=== PATIENT | male | born 1985 | race Caucasian/White ===

== ENCOUNTER 2017-02-01 02:11 | Observation (INO) | payer OTHER ==
[~2017-02-01] VITALS: Ht 167.6 cm; Wt 135.3 kg
[2017-02-01] MEDS ORDERED: LABETALOL HCL IV 5 MG/ML 20ML IV STA ×2 (02:32→05:32)
--- NOTE | 2017-02-01 02:32 | EMERGENCY ROOM VISIT NOTE ---
History Report prepared by Zack: Percy Mendez Under the Supervision of: Dr. Rickey Garland M.D. First contact with patient: 02:22 Chief Complaint: OTHER COMPLAINT Stated Complaint: SUDDEN METALLIC TASTE,NUMBNESS IN MOUTH History of Present Illness The patient is a 31 year old male with a history of an aortic dissection who presents to the Emergency Room with complaints of an episode of numbness in his mouth that occurred prior to arrival this morning. 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 He states that he had an aortic dissection 2 years ago, and these symptoms this morning made him very anxious. The patient denies any nausea, vomiting, chest pain, neck pain, or headaches. He says that he currently feels normal, but his blood pressure is noted to be very high here. He denies any hits or recent trauma, or any new medications or unusual food intake. He is not on any blood thinners. 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 Source of History: patient Onset: Prior to arrival this morning Position: lip (and mouth) Quality: numbness (and tingling) Timing: other (episode) Associated Symptoms: No headache, No neck pain, No chest pain, No nausea, No vomiting Note: Associated symptoms: High blood pressure. Metallic taste in mouth for few seconds. Review of Systems See HPI for pertinent positives & negatives. A total of 10 systems reviewed and were otherwise negative. Past Medical & Surgical Medical Problems: (1) HTN (hypertension) (2) Hypertensive urgency (3) Numbness and tingling Family History FHx: heart disease Hypertension Social History Smoking Status: Never Smoker Alcohol Use: occasionally Drug Use: marijuana Occupation Status: employed Current/Historical Medications Scheduled Atorvastatin (Lipitor), 40 MG PO DAILY Enalapril (Vasotec), 10 MG PO BID Metoprolol Tartrate (Lopressor) (Lopressor), 100 MG PO BID Allergies Coded Allergies: Dust (Verified Allergy, Unknown, resp sx, 05/26/14) Molds and Smuts (Verified Allergy, Unknown, resp sx, 1/9/15) Physical Exam Vital Signs Date Time Temp Pulse Resp B/P (MAP) Pulse Ox O2 Delivery O2 Flow Rate FiO2 02/01/17 07:11 80 25 02/01/17 07:01 137/76 02/01/17 06:46 134/63 02/01/17 06:41 73 18 02/01/17 06:31 148/72 02/01/17 06:21 74 20 153/84 95 Room Air 02/01/17 06:16 153/84 02/01/17 06:11 72 22 96 02/01/17 06:01 152/80 02/01/17 05:46 165/84 02/01/17 05:25 76 20 178/85 95 Room Air 02/01/17 03:22 79 20 131/66 98 Room Air 02/01/17 03:06 75 18 157/97 95 Room Air 02/01/17 02:14 36.6 83 18 194/131 95 Room Air Physical Exam GENERAL: Patient is anxious appearing and in no acute distress. Overweight. HEENT: No acute trauma, normocephalic atraumatic, mucous membranes moist, no nasal congestion, no scleral icterus. NECK: No stridor, no adenopathy, no meningismus, trachea is midline. LUNGS: No dyspnea. Clear to auscultation and equal bilaterally. No wheeze, no rhonchi. HEART: Regular rate and rhythm. No murmurs, rubs, gallops appreciated. ABDOMEN: Soft, nontender, bowel sounds positive, no masses appreciated, no peritonitis. BACK: No midline tenderness, no CVA tenderness EXTREMITIES: Normal motion all extremities, no cyanosis, no edema. NEUROLOGIC: Alert and oriented, no acute motor or sensory deficits, no focal weakness, cranial nerves grossly intact. SKIN: No rash, no jaundice, no diaphoresis. Medical Decision & Procedures ER Provider Diagnostic Interpretation: Radiology results and stated below per my review and radiologist interpretation: Chest x-ray 1 view: no infiltrate, no effusion, large heart though smaller than previous chest x-ray. Sternal wires intact. CT HEAD: No ICH, mass effect, or edema. Shaffer-white matter differentiation preserved. No skull fracture. Visualized paranasal sinuses and mastoid air cells are clear. Radiologist: Cheyanne Stevens M.D. CTA NECK: Evaluation limited by motion artifact. Prior ascending aortic aneurysm repair. No evidence of recurrent dissection. Bilateral common carotid arteries are patent and normal in caliber. Bilateral internal carotid and vertebral arteries are patent and normal in caliber. No evidence of aneurysm or dissection. No acute osseous findings. No soft tissue abnormalities of the neck. CTA CHEST: Evaluation limited by motion artifact. Prior ascending aortic aneurysm repair. No evidence of recurrent dissection. No evidence of intramural hematoma on precontrast images. Enlarged main pulmonary artery compatible with pulmonary arterial hypertension. Mild cardiomegaly. No pericardial effusion. Clear lungs. No effusion or pneumothorax. Unremarkable visualized upper abdomen. No acute osseous findings. Radiologist: Cheyanne Cisneros M.D. Laboratory Results 02/01/17 02:45 Red Blood Count 5.18, Mean Corpuscular Volume 91.3, Mean Corpuscular Hemoglobin 32.2, Mean Corpuscular Hemoglobin Concent 35.3, Mean Platelet Volume 9.9, Neutrophils (%) (Auto) 58.2, Lymphocytes (%) (Auto) 32.6, Monocytes (%) (Auto) 7.2, Eosinophils (%) (Auto) 1.4, Basophils (%) (Auto) 0.2, Neutrophils # (Auto) 4.98, Lymphocytes # (Auto) 2.79, Monocytes # (Auto) 0.62, Eosinophils # (Auto) 0.12, Basophils # (Auto) 0.02 02/01/17 02:45 Test 02/01/17 02:45 02/01/17 07:18 02/01/17 07:34 White Blood Count 8.56 K/uL (4.8-10.8) Red Blood Count 5.18 M/uL (4.7-6.1) Hemoglobin 16.7 g/dL (14.0-18.0) Hematocrit 47.3 % (42-52) Mean Corpuscular Volume 91.3 fL (80-100) Mean Corpuscular Hemoglobin 32.2 pg (25-34) Mean Corpuscular Hemoglobin Concent 35.3 g/dl (32-36) Platelet Count 264 K/uL (130-400) Mean Platelet Volume 9.9 fL (7.4-10.4) Neutrophils (%) (Auto) 58.2 % Lymphocytes (%) (Auto) 32.6 % Monocytes (%) (Auto) 7.2 % Eosinophils (%) (Auto) 1.4 % Basophils (%) (Auto) 0.2 % Neutrophils # (Auto) 4.98 K/uL (1.4-6.5) Lymphocytes # (Auto) 2.79 K/uL (1.2-3.4) Monocytes # (Auto) 0.62 K/uL (0.11-0.59) Eosinophils # (Auto) 0.12 K/uL (0-0.5) Basophils # (Auto) 0.02 K/uL (0-0.2) RDW Standard Deviation 41.8 fL (36.4-46.3) RDW Coefficient of Variation 12.6 % (11.5-14.5) Immature Granulocyte % (Auto) 0.4 % Immature Granulocyte # (Auto) 0.03 K/uL (0.00-0.02) Anion Gap 4.0 mmol/L (3-11) Est Creatinine Clear Calc Drug Dose 125.1 ml/min Estimated GFR () 102.4 Estimated GFR (Non- 88.4 BUN/Creatinine Ratio 13.4 (10-20) Calcium Level 9.3 mg/dl (8.5-10.1) Magnesium Level 2.0 mg/dl (1.8-2.4) Total Creatine Kinase 144 U/L (39-308) Creatine Kinase MB 2.7 ng/ml (0.5-3.6) Creatine Kinase MB Ratio 1.9 (0-3.0) Troponin I 0.058 ng/ml (0-0.045) Laboratory results as reviewed by me. Medications Administered Medications (Trade) Dose Ordered Sig/Ashwin Route Start Time Stop Time Status Last Admin Dose Admin Labetalol HCl (Normodyne IV) 20 mg NOW STAT IV 02/01/17 02:32 02/01/17 02:33 DC 02/01/17 03:08 10 MG Labetalol HCl (Normodyne IV) 10 mg NOW STAT IV 02/01/17 05:32 02/01/17 05:33 DC 02/01/17 05:32 10 MG ECG Indication: other (numbness) Rate (beats per minute): 73 Rhythm: normal sinus Findings: LBBB, no acute ischemic change, no ectopy Comparison ECG Date: when compared to May 26 2014, intraventricular delay has increased ED Course 0225: The patient was evaluated in room C2B. A complete history and physical exam was performed. 0232: Ordered Normodyne IV 20 mg IV. 0355: I reevaluated the patient and he is resting. The patient verbally expressed understanding and agreement of the treatment plan. The patient will be evaluated for further treatment. 0358: I discussed the patient with Dr. Rosa BERUMEN fortune teller - he will evaluate the patient for further treatment. 0532: Ordered Normodyne IV 10 mg IV. 0540: I reevaluated the patient and he is feeling well. Medical Decision Differential: Benign Hypertension, Hypertensive Urgency/Emergency, Cardiovascular Pathology, Endocrine, Metabolic/Electrolyte, Renal Disease, End organ Damage, amongst other pathologies entertained. 31 yr old male arrives for evaluation of metallic taste in his mouth and after this jodi-oral numbness/tingling. On arrival with no neuro deficits though he is significantly hypertensive. He has history of aortic dissection last year requiring open closure at [facility] [place]. Admits no follow up in last 11 months. Labetalol with improvement in symptoms. Required second dose IV labetalol a bit later. EKG with LBBB which is significantly increased from EKG previously, though similar to those from post operative phase. No chest pain nor SHOB. Discussing with Hospitalist will go ahead and get CTAs to rule out dissection as cause in setting of HTN. Fortunately no acute findings. Patient stable and will come in for evaluation of mild Trop elevation which given HTN I suspect this is hypertensive emergency and not acute dissection nor ACS. Could just be baseline level given ventricular hypertrophy though will need further work-up prior to making this decision. Medication Reconcilliation Current Medication List: was personally reviewed by me Blood Pressure Screening Patient's blood pressure: Elevated blood pressure Monitored by hospitalist. Consults Time Called: [phone] Consulting Physician: Dr. Rosa BERUMEN fortune teller Returned Call: [phone] I discussed the patient with Dr. Rosa BERUMEN fortune teller - he will evaluate the patient for further treatment. Impression Primary Impression: Hypertensive emergency Additional Impression: Elevated troponin Scribe Attestation The scribe's documentation has been prepared under my direction and personally reviewed by me in its entirety. I confirm that the note above accurately reflects all work, treatment, procedures, and medical decision making performed by me. Departure Information Dispostion Being Evaluated By Hospitalist Referrals No Doctor, Assigned (PCP) Patient Instructions [facility] Problem Qualifiers
[2017-02-01] MEDS ORDERED: METO100T14 PO (02:37)
[2017-02-01] MEDS ORDERED: ENAL10TA88 PO (02:38)
[2017-02-01] MEDS ORDERED: ATOR-24 PO (02:38)
[2017-02-01 02:52] LABS: BASO % 0.2 %; BASO ABS # 0.02 K/uL (0-0.2); COMPLETE YES; EOS % 1.4 %; HEMATOCRIT 47.3 % (42-52); IG% 0.4 %; LYMPH % 32.6 %; LYMPH ABS # 2.79 K/uL (1.2-3.4); MEAN CELL VOLUME 91.3 fL (80-100); MEAN CORPUSCULAR HEMOGLOBIN 32.2 pg (25-34); MEAN CORPUSCULAR HGB CONC 35.3 g/dl (32-36); MEAN PLATELET VOLUME 9.9 fL (7.4-10.4); MONO % 7.2 %; NEUT % 58.2 %; PLATELET COUNT 264 K/uL (130-400); RED BLOOD COUNT 5.18 M/uL (4.7-6.1); WHITE BLOOD COUNT 8.56 K/uL (4.8-10.8)
[2017-02-01 03:23] LABS: BUN/CREATININE RATIO 13.4 (10-20); CALCIUM 9.3 mg/dl (8.5-10.1); CREATININE 1.1 mg/dl (0.60-1.40)
[2017-02-01 03:41] LABS: CKMB/CK RATIO 1.9 (0-3.0); POTASSIUM 4.5 mmol/L (3.5-5.1)
--- NOTE | 2017-02-01 05:14 | History and Physical ---
History & Physical Date & Time of Service: Feb 01, 2017 at 04:58 Chief Complaint: Sudden Metallic Taste,Numbness In Mouth Primary Care Physician: No Doctor, Assigned History of Present Illness Source: patient 31 y/o M Hx HTN, HPL, LBBB, critical aortic dissection 2014. 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 He developed a strong metallic taste in his mouth, followed by perioral numbness and a sense of panic. His symptoms were short-lived, however, considering his history, he presented to the ER for evaluation. The pt's systolic BP on arrival was > 200. He was asymptomatic at the time of evaluation for admission. An initial trop proved to be marginally elevated and an EKG is nondiagnostic due to LBBB. Following 20 mg of IV Labetalol administered in the ER, his pressure was ~ 140/ 80. Past Medical/Surgical History 1) HTN 2) Obesity 3) HPL 4) Aortic dissection 2014 - CT from 2014 revealed a type A dissection involving the aortic root, estimated at 5.2cm extending to involve the origin of the R carotid. Hemopericardium indicating rupture was described. Pt was transferred to [facility] in [place] emergently for open repair. 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 Smoking Status: Never Smoker Drug Use: marijuana Occupational Status: employed Multi-Drug Resistant Organisms History of MDRO: No Allergies Coded Allergies: Dust (Verified Allergy, Unknown, resp sx, 05/26/14) Molds and Smuts (Verified Allergy, Unknown, resp sx, 05/26/14) Home Medications Scheduled Atorvastatin (Lipitor), 40 MG PO DAILY Enalapril (Vasotec), 10 MG PO BID Metoprolol Tartrate (Lopressor) (Lopressor), 100 MG PO BID Review of Systems Constitutional: No fever, No chills, No sweats Eyes: No worsening of vision ENT: + problem reported (perioral numbness - metallic taste in mouth), No hearing loss, No nasal symptoms Respiratory: No cough, No sputum, No wheezing Cardiovascular: No chest pain, No orthopnea, No PND Abdomen: No pain, No nausea, No vomiting Musculoskeletal: No joint pain Genitourinary - Male: No hematuria, No dysuria Neurologic: + numbness/tingling (perioral numbness - metallic taste in mouth), No memory loss, No paralysis, No weakness Psychiatric: No depression symptoms Endocrine: No fatigue Hematologic / Lymphatic: No abnormal bleeding/bruising Integumentary: No rash Allergic / Immunologic: No environmental allergies Physical Exam Vital Signs Date Time Temp Pulse Resp B/P (MAP) Pulse Ox O2 Delivery O2 Flow Rate FiO2 02/01/17 03:22 79 20 131/66 98 Room Air 02/01/17 03:06 75 18 157/97 95 Room Air 02/01/17 02:14 36.6 83 18 194/131 95 Room Air General Appearance: WD/WN, + mild distress Head: normocephalic Eyes: normal inspection ENT: normal ENT inspection, pharynx normal Neck: supple, + pertinent finding (exam is limited by habitus) Respiratory/Chest: chest non-tender, lungs clear, normal breath sounds Cardiovascular: regular rate, rhythm, no edema Abdomen/GI: normal bowel sounds, non tender Back: normal inspection, no CVA tenderness Extremities/Musculoskelatal: normal inspection, no calf tenderness, normal capillary refill Neurologic/Psych: station superintendent II-XII nml as tested, no motor/sensory deficits, alert, oriented x 3 Skin: normal color Diagnostics Laboratory Results Results Past 24 Hours Test 02/01/17 02:45 Range/Units White Blood Count 8.56 4.8-10.8 K/uL Red Blood Count 5.18 4.7-6.1 M/uL Hemoglobin 16.7 14.0-18.0 g/dL Hematocrit 47.3 42-52 % Mean Corpuscular Volume 91.3 80-100 fL Mean Corpuscular Hemoglobin 32.2 25-34 pg Mean Corpuscular Hemoglobin Concent 35.3 32-36 g/dl Platelet Count 264 130-400 K/uL Mean Platelet Volume 9.9 7.4-10.4 fL Neutrophils (%) (Auto) 58.2 % Lymphocytes (%) (Auto) 32.6 % Monocytes (%) (Auto) 7.2 % Eosinophils (%) (Auto) 1.4 % Basophils (%) (Auto) 0.2 % Neutrophils # (Auto) 4.98 1.4-6.5 K/uL Lymphocytes # (Auto) 2.79 1.2-3.4 K/uL Monocytes # (Auto) 0.62 0.11-0.59 K/uL Eosinophils # (Auto) 0.12 0-0.5 K/uL Basophils # (Auto) 0.02 0-0.2 K/uL RDW Standard Deviation 41.8 36.4-46.3 fL RDW Coefficient of Variation 12.6 11.5-14.5 % Immature Granulocyte % (Auto) 0.4 % Immature Granulocyte # (Auto) 0.03 0.00-0.02 K/uL Sodium Level 139 136-145 mmol/L Potassium Level 4.5 3.5-5.1 mmol/L Chloride Level 107 98-107 mmol/L Carbon Dioxide Level 28 21-32 mmol/L Anion Gap 4.0 3-11 mmol/L Blood Urea Nitrogen 15 7-18 mg/dl Creatinine 1.10 0.60-1.40 mg/dl Est Creatinine Clear Calc Drug Dose 125.1 ml/min Estimated GFR () 102.4 Estimated GFR (Non- 88.4 BUN/Creatinine Ratio 13.4 10-20 Random Glucose 125 70-99 mg/dl Calcium Level 9.3 8.5-10.1 mg/dl Magnesium Level 2.0 1.8-2.4 mg/dl Total Creatine Kinase 144 39-308 U/L Creatine Kinase MB 2.7 0.5-3.6 ng/ml Creatine Kinase MB Ratio 1.9 0-3.0 Troponin I 0.054 0-0.045 ng/ml EKG LBBB - nondiagnostic Impression Assessment and Plan 31 y/o M Hx HTN, HPL, LBBB, critical aortic dissection 2014. 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 He developed a strong metallic taste in his mouth, followed by perioral numbness and a sense of panic. His symptoms were short-lived, however, considering his history, he presented to the ER for evaluation. The pt's systolic BP on arrival was > 200. He was asymptomatic at the time of evaluation for admission. An initial trop proved to be marginally elevated and an EKG is nondiagnostic due to LBBB. Following 20 mg of IV Labetalol administered in the ER, his pressure was ~ 140/ 80. 1) Elevated trop - unclear if this is chronic - EKG is nondiagnostic and does not meet Sgarbossa criteria - we will trend and consult cardiology - cont B viviana and Statin - ASA provided 2) HTN urgency - responded to single dose of IV Labetalol - will monitor on telemetry and provide additional Bblocker as needed 3) HPL - cont Statin 4) Obesity - considering the pt's history, dietary indiscretion and marked obesity, he should likely be evaluated for a gastric sleeve if not a bypass. We would presume based on his habitus that he has SHARI which would impede proper BP control and put him at further risk of recurrent dissection. 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 6) Regarding his perioral numbness, the pt was sent for a CTA as review of a CT from his dissection in 2014 revealed encroachment on the origin of the R carotid artery. There are no acute findings on CTA and I do not believe his symptoms merit a complete TIA workup as HTN urgency may be accompanied by paresthesias. Full code - Heparin prophylaxis total time for this admit including review of labs, meds, imaging, EKG - discussion with pt and ER attending Level of Care Telemetry Resuscitation Status FULL RESUSCITATION VTE Prophylaxis Given or contraindicated: SCD's
[2017-02-01] MEDS ORDERED: OPTIRAY 320 IV PRN (05:15)
[2017-02-01] MEDS ORDERED: ZOLPIDEM TARTRATE 5 MG TAB PO PRN (06:45)
[2017-02-01] MEDS ORDERED: ALUMINUM/MAGNESIUM/SIMETH (MAALOX MAX) 30 ML UDC PO PRN (06:45)
[2017-02-01] MEDS ORDERED: SODIUM CHLORIDE 0.9% 1000ML 1,000 ML IV ONE (06:45)
[2017-02-01] MEDS ORDERED: MoRPHine SULFATE 2 MG/ML CARP IV PRN (06:45)
[2017-02-01] MEDS ORDERED: POLYETHYLENE (MIRALAX) 17 GM PACK PO PRN (06:45)
[2017-02-01] MEDS ORDERED: ONDANSETRON INJ 2 MG/ML 2 ML VIAL IV PRN (06:45)
[2017-02-01] MEDS ORDERED: MAGNESIUM HYDROXIDE SUSP 30 ML UDC PO PRN (06:45)
[2017-02-01] MEDS ORDERED: ACETAMINOPHEN 325 MG TAB PO PRN (06:45)
[2017-02-01] MEDS ORDERED: LABETALOL HCL IV 5 MG/ML 20ML IV PRN (06:45)
--- NOTE | 2017-02-01 06:56 | DIAGNOSTIC IMAGING REPORT ---
CHEST ONE VIEW PORTABLE CLINICAL HISTORY: 31 years-old Male presenting with Chest Pain. TECHNIQUE: Portable upright AP view of the chest was obtained. COMPARISON: 05/26/2014. FINDINGS: Median sternotomy wires now in place. Cardiac silhouette enlarged, stable to slightly decreased in size from prior. Lungs and pleural spaces clear. Osseous structures normal. Upper abdomen normal. IMPRESSION: 1. Cardiomegaly with sternotomy changes. Otherwise no acute cardiopulmonary disease. Electronically signed by: Anuj Mccann M.D. 02/01/2017 6:55 AM Dictated Date/Time: 02/01/2017 6:54 AM
[2017-02-01] MEDS ORDERED: IV FLUIDS COMPLETED PRN (07:00)
--- NOTE | 2017-02-01 07:00 | DIAGNOSTIC IMAGING REPORT ---
HEAD WITHOUT CONTRAST (CT) CLINICAL HISTORY: 31 years-old Male presenting with neuro symptoms, metallic taste in mouth, numbness in mouth. TECHNIQUE: Multidetector CT imaging of the head was performed without the use of intravenous contrast. IV contrast: None. A dose lowering technique was used consistent with the principles of ALARA (as low as reasonably achievable). COMPARISON: None. CT DOSE (mGy.cm): The estimated cumulative dose is 614.27 mGy.cm. FINDINGS: Professor Of Art topogram: Unremarkable. Ventricles and sulci normal in size. Brain parenchyma normal in appearance with preserved bach-white differentiation. No mass effect or midline shift. No hemorrhage or acute territorial infarct. No extra-axial fluid collection. Paranasal sinuses and mastoid air cells clear. Calvarium intact. IMPRESSION: 1. No acute intracranial pathology. Electronically signed by: Anuj Mccann M.D. 02/01/2017 6:59 AM Dictated Date/Time: 02/01/2017 6:57 AM
--- NOTE | 2017-02-01 07:44 | DIAGNOSTIC IMAGING REPORT ---
CHEST COMBO ANGIOGRAPHY CLINICAL HISTORY: 31 years-old Male presenting with TIA symptoms, hypertensive urgency, history of aortic aneurysm repair. TECHNIQUE: Multidetector CT angiography of the chest was performed before and after the administration of intravenous contrast. 3-D volumetric and/or maximum intensity projection (MIP) images were subsequently reconstructed for review. IV contrast: 120 mL of Optiray 320. A dose lowering technique was used consistent with the principles of ALARA (as low as reasonably achievable). COMPARISON: 05/26/2014. CT DOSE (mGy.cm): The estimated cumulative dose is 3411.13 mGy.cm. FINDINGS: Senior Qa Engineer topogram: Unremarkable. Vasculature: Initial noncontrast imaging of the chest demonstrates no evidence of an intramural hematoma. Hyperdensity along the aortic root and ascending aorta from prior aneurysm repair. Postcontrast imaging demonstrates mild ectasia of the aortic root measuring 3.1 cm in maximal transverse dimension. Mild irregularity likely postsurgical and secondary to nongated technique. No convincing evidence of dissection or acute aortic injury. The heart is significantly enlarged with hypertrophy of left ventricular myocardium. Mild enlargement of the main pulmonary artery measuring 3.2 cm in transverse dimension. Remaining chest: On soft tissue windows, normal thyroid and thoracic inlet. No axillary, supraclavicular, mediastinal, or hilar adenopathy. No pericardial or pleural effusion. Upper abdomen normal. On lung windows, evaluation degraded secondary to respiratory motion artifact. Allowing for this, no focal infiltrate. Airways patent. On bone windows, median sternotomy changes. No acute osseous injury. No destructive osseous lesion. IMPRESSION: 1. Postsurgical changes of ascending aortic aneurysm repair. No convincing evidence of acute aortic injury. 2. Cardiomegaly. 3. Mild pulmonary artery enlargement could suggest pulmonary artery hypertension. This may be secondary to elevated left heart pressures. 4. No acute intrathoracic pathology. Electronically signed by: Anuj Mccann M.D. 02/01/2017 7:42 AM Dictated Date/Time: 02/01/2017 7:35 AM
--- NOTE | 2017-02-01 07:53 | DIAGNOSTIC IMAGING REPORT ---
NECK ANGIO WITH CONTRAST CLINICAL HISTORY: 31 years-old Male presenting with concern for dissection, history of aortic dissection with root involvement, TIA symptoms. TECHNIQUE: Multidetector CT angiography of the neck was performed after the administration of intravenous contrast. 3-D volumetric and/or maximum intensity projection (MIP) images were subsequently reconstructed for review. IV contrast: None. A dose lowering technique was used consistent with the principles of ALARA (as low as reasonably achievable). Stenosis measurements were based on NASCET-like criteria. COMPARISON: Correlation made to CT chest from 2015. CT DOSE (mGy.cm): The estimated cumulative dose is 3411.13 inclusive of the CTA chest. FINDINGS: Water Ski Assembler topogram: Unremarkable. Three-vessel aortic arch with postsurgical changes of the ascending aorta. Pulsation artifact at the aortic root limits evaluation. Bilateral common and internal carotid arteries patent throughout their courses. Origins and courses of the bilateral vertebral arteries also patent, which are codominant. No evidence of dissection, aneurysm, or stenosis of the cervical vessels. Limited intracranial evaluation within normal limits. Regional soft tissues of the neck within normal limits. Cervical spine normal. IMPRESSION: No evidence of dissection, aneurysm, or stenosis of the cervical vessels. Electronically signed by: Anuj Mccann M.D. 02/01/2017 7:52 AM Dictated Date/Time: 02/01/2017 7:42 AM
[2017-02-01 08:05] VITALS: BP 129/86; PULSE 89; TEMP 36.5; O2SAT 98; Ht 167.6 cm; Wt 135.3 kg
[2017-02-01 08:05] LABS: PROTHROMBIN TIME (PATIENT) 10.8 SECONDS (9.0-12.0)
[2017-02-01] MEDS ORDERED: ASPIRIN 81 MG ECTAB PO SCH (09:00)
--- NOTE | 2017-02-01 10:59 | CARDIOLOGY CONSULTATION ---
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 In May 2014, he presented with a type 1 ascending aortic dissection which required surgical repair. He also had hypertrophic cardiomyopathy and is status post myomectomy. The aortic root was reconstructed with reimplantation of the coronaries. He also has a history of obesity, hypertension and hyperlipidemia. He has not been always compliant with followup and recommendations. The patient was last seen in our practice in March 2016. At that time, it was requested that he have a follow up CT and echocardiogram which were not completed. 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 Late last evening, he finished his copy and sent it along. Almost immediately after sending his work, he had the sudden onset of metallic taste in his mouth with numbness of his lips. He states this only lasted for approximately 5 seconds. It then resolved. Due to his previous history however, he became concerned and thought he might be having a stroke. He then presented to the Emergency Department. The patient had no chest pain or shortness of breath. He denies heart palpitations or dizziness. In the Emergency Department, the patient was noted to be markedly hypertensive and was treated appropriately. He does have a chronic left bundle branch block on his EKG. His cardiac markers at the time of admission and follow up have been borderline elevated at 0.5 with no significant increase after admission, suggesting an elevation not due to acute coronary syndrome, most likely due to his hypertension. He has no complaints this morning. He has had a CT angio of the chest which shows no new dissections or problems with the aorta. He also had a CT angio of the brain that shows no significant findings that would suggest a stroke. ALLERGIES: DUST AND MOLDS. PAST MEDICAL HISTORY: As outlined above. Status post type 1 aortic dissection repair which was completed at [facility] in 2014. He has a history of a chronic left bundle branch block and a previous myomectomy and hypertrophic cardiomyopathy. He was treated for dyslipidemia, hypertension and has a history of obesity. FAMILY MEDICAL HISTORY: Significant for hypertension. SOCIAL HISTORY: He is a never smoker. He does have occasional marijuana. 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 REVIEW OF SYSTEMS: A 10-point review of systems is negative except for the history of chief complaint. PHYSICAL EXAMINATION: GENERAL: He is alert and oriented in no acute distress. VITAL SIGNS: Blood pressure is 130/60. Pulse is regular at 70. He is afebrile. HEENT: He is normocephalic. Pupils are equal and reactive to light. Extraocular muscles are intact bilaterally. NECK: The neck veins are flat. Carotids have good upstrokes bilaterally without bruits. Thyroid is nonpalpable. RESPIRATORY: Breath sounds equal bilaterally and clear to auscultation. CARDIOVASCULAR: Heart has a regular rhythm. Normal S1, S2. No S3, S4. No cardiac rubs or murmurs. GASTROINTESTINAL: Abdomen is soft, nontender without organomegaly. EXTREMITIES: Free of edema, digit clubbing, or cyanosis. NEUROLOGIC: Grossly intact. SKIN: Warm to touch. LYMPH NODES: Negative to palpation. LABORATORY DATA: As per the history of chief complaint. IMPRESSION: 1. Perioral paresthesias and a metallic taste. 2. Type 2 aortic dissection with repair. 3. Hypertrophic cardiomyopathy with previous myomectomy. 4. Borderline elevation in troponin due to demand ischemia from hypertension and not related to acute coronary syndrome. 5. Obesity. RECOMMENDATIONS: The patient was to have an echocardiogram after his last outpatient visit at our clinic. That was never completed. I will order one today as a followup of his hypertrophic cardiomyopathy. I would also order an additional troponin. Although, I do not believe that is due to acute coronary syndrome. If the additional troponins come back without elevation, then I think we are fairly certain it is related to demand ischemia.
[2017-02-01 11:15] VITALS: BP 112/77; PULSE 79; TEMP 37; O2SAT 92
[2017-02-01] MEDS ORDERED: HEPARIN SOD 5000 UNIT/0.5 ML CARP SQ SCH (14:00)
--- NOTE | 2017-02-01 14:16 | ECHOCARDIOGRAM REPORT ---
*NOTICE TO RECEIVING DEMOCRAT AGENCY This information is strictly Confidential and protected under [place] law. [place] law prohibits you from making any further disclosure of this information unless further disclosure is expressly permitted by the written consent of the person to whom it pertains or is authorized by law. A general authorization for the release of medical or other information is not sufficient for this purpose. Hospital accepts no responsibility if the information is made available to any other person, INCLUDING THE PATIENT. Interpretation Summary * Name: KALYAN BARNES Study Date: 02/01/2017 11:34 AM BP: 129/86 mmHg * Patient Location: C.2T\S\S240\S\1 HR: 89 * : 1985 (M/d/yyyy) Gender: Male Height: 66 in * Age: 31 yrs Ethnicity: CA Weight: 298 lb * Ordering Physician: Jayesh Petty * Referring Physician: Self, Referred * Performed By: Silvina Artis RCS * * Reason For Study: Dissection Aorta * BSA: 2.4 m2 * The study was technically difficult. * -- Conclusions -- * Very limited acoustic windows. * The study was technically difficult. * The left ventricle is grossly normal size. * The left ventricular ejection fraction is grossly normal. Procedure Details * A complete two-dimensional transthoracic echocardiogram was performed (2D, M-mode, Doppler and color flow Doppler). * The study was technically difficult. * The study was technically limited. * Patient supine for imagining * A contrast injection of Definity was performed to improve assessment of LV function. * Contrast was injected into an intravenous site in the right arm. * One vial of Definity ultrasound contrast was diluted in normal saline to a total volume of 10 ml. A total of '2' ml of solution was administered during imaging. * Lot # [id number] of Definity utilized for procedure. * Expiration date . * The attending nurse who injected the contrast agent was Suzy Alfonso RN. Left Ventricle * The left ventricle is grossly normal size. * The left ventricular ejection fraction is grossly normal. Right Ventricle * The right ventricle is not well visualized. Atria * The left atrium is not well visualized. * Right atrium not well visualized. Mitral Valve * The mitral valve is not well visualized. Tricuspid Valve * The tricuspid valve is not well visualized. Aortic Valve * The aortic valve is not well visualized. Pulmonic Valve * The pulmonic valve is not well visualized. MMode 2D Measurements and Calculations IVSd 1.7 cm IVSs 1.8 cm LVIDd 5.4 cm LVIDs 4.4 cm LVPWd 1.8 cm LVPWs 1.8 cm IVS/LVPW 0.96 FS 18.6 % EDV(Teich) 140.3 ml ESV(Teich) 86.9 ml EF(Teich) 38.1 % EDV(cubed) 156.0 ml ESV(cubed) 84.2 ml EF(cubed) 46.0 % % IVS thick 6.6 % % LVPW thick 2.9 % LV mass(C)d 456.2 grams LV mass(C)dI 192.5 grams/m\S\2 LV mass(C)s 366.0 grams LV mass(C)sI 154.5 grams/m\S\2 SV(Teich) 53.4 ml SI(Teich) 22.6 ml/m\S\2 SV(cubed) 71.8 ml SI(cubed) 30.3 ml/m\S\2 Ao root diam 3.8 cm Ao root area 11.5 cm\S\2 LA dimension 4.7 cm asc Aorta Diam 3.3 cm LA/Ao 1.2 EDV(MOD-sp4) 219.9 ml ESV(MOD-sp4) 96.1 ml EF(MOD-sp4) 56.3 % EDV(MOD-sp2) 230.8 ml ESV(MOD-sp2) 138.5 ml EF(MOD-sp2) 40.0 % SV(MOD-sp4) 123.9 ml SI(MOD-sp4) 52.3 ml/m\S\2 SV(MOD-sp2) 92.3 ml SI(MOD-sp2) 39.0 ml/m\S\2 Doppler Measurements and Calculations MV E max dre 87.9 cm/sec MV A max dre 103.1 cm/sec MV E/A 0.85 MV P1/2t max dre 95.8 cm/sec MV P1/2t 81.7 msec MVA(P1/2t) 2.7 cm\S\2 MV dec slope 343.5 cm/sec\S\2 MV dec time 0.25 sec Ao V2 max 267.2 cm/sec Ao max PG 28.6 mmHg Ao max PG (full) 19.4 mmHg LV V1 max PG 9.1 mmHg LV V1 max 151.2 cm/sec PA V2 max 137.2 cm/sec PA max PG 7.5 mmHg
--- NOTE | 2017-02-01 15:16 | Discharge Instructions ---
Discharge Instructions Date of Service Feb 01, 2017. Admission Reason for Admission: Hypertensive Urgency,Numbness And Tingling Discharge Discharge Diagnosis / Problem: Chest pain Discharge Goals Goal(s): Decrease discomfort, Improve disease control, Diagnostic testing Activity Recommendations Activity Limitations: resume your previous activity . Instructions / Follow-Up Instructions / Follow-Up You were seen at the hospital today for assessment of chest sensation. Labs were performed and the troponin levels (protein leak from the heart muscle ) was borderline, but given resolution of symptoms, this was not overly concerning for an acute heart attack. An echo was done to assess the heart further, but this was also a difficult test to assess. No obvious structural defect of the heart was seen. At this time, it is deemed that you are safe for discharge, provided close follow up with the cardiology team is arranged. Your psychology tech's office will call you with an appointment time. It is very important that you work with them closely to optimize your heart health. If you do not hear from them within a couple of days, please let us know or call the office directly. Other things you can personally due to improve your cardiac health include taking your medication as prescribed, a healthy diet and exercise, as well as stress management. You were seen by Dr. Christianson and Dr. Hubbard in the hospital, both of whom are family physicians who could work with you to set reasonable goals and manage these factors with you usp. Please call the [facility] office at [phone] to set an appointment with either of them, they would be happy to help you. On discharge, continue your blood pressure medication as before. Also, aspirin has been added to the regimen, please take one tablet daily. Thank you for allowing us to participate in your care, please let us know if you have any questions. Current Hospital Diet Patient's current hospital diet: AHA Diet (Heart Healthy), Low Sodium Diet (2gm Na) Discharge Diet Recommended Diet: AHA Diet (Heart Healthy) Pending Studies Studies pending at discharge: no Medical Emergencies . Who to Call and When: Medical Emergencies: If at any time you feel your situation is an emergency, please call 911 immediately. . Non-Emergent Contact Non-Emergency issues call your: Primary Care Provider, Assembly Line Inspector . . "Provider Documentation" section prepared by Aisha Hubbard. . VTE Core Measure Inpt VTE Proph given/why not?: SCD's Resident Tracking Resident Involvement: Resident Care Provided Care Provided: Adult Hospital Medicine
[2017-02-01 15:21] VITALS: BP 149/78; PULSE 94; TEMP 36.6; O2SAT 94
[2017-02-01] MEDS ORDERED: ASPEC81 PO (15:33)
[2017-02-01 16:29] VITALS: BP 149/78; PULSE 94; TEMP 36.6; O2SAT 94
--- NOTE | 2017-02-01 18:44 | Discharge Summary ---
Discharge Summary Date of Service Feb 01, 2017. (Alka. Hubbard MD) Discharge Summary Admission Date: Feb 01, 2017 at 06:40 Discharge Date: Feb 01, 2017 Discharge Disposition: Home Principal Diagnosis: Chest discomfort (Alka. Hubbard MD) Medication Reconciliation New Medications: Aspirin (Aspirin EC Low Dose) 81 Mg Ectab 81 MG PO DAILY, #30 TAB 3 Refills Continued Medications: Atorvastatin (Lipitor) 40 Mg Tab 40 MG PO DAILY, TAB Enalapril (Vasotec) 10 Mg Tab 10 MG PO BID, TAB Metoprolol Tartrate (Lopressor) (Lopressor) 100 Mg Tab 100 MG PO BID, TAB Discharge Exam Patient well. Denies any recurrence of chest sensation which she had prior to arrival. Denying any chest pain, dyspnea, diaphoresis, nausea, palpitations, back pain, numbness or tingling anywhere in the body currently. He has been ambulating to and from the bathroom without any recurrence. He has been tolerating diet. Patient updated with lab and echo results, and questions were answered to his and his family's satisfaction. ROS unremarkable except as noted above. Physical Exam: General Appearance: no apparent distress, + obese Eyes: normal inspection ENT: hearing grossly normal, pharynx normal Neck: supple, no adenopathy, no JVD Respiratory/Chest: lungs clear, normal breath sounds, no respiratory distress, no accessory muscle use Cardiovascular: regular rate, rhythm, no murmur, normal peripheral pulses Abdomen / GI: normal bowel sounds, non tender, soft Extremities: no calf tenderness, normal capillary refill, no pedal edema Neurologic/Psychiatric: alert, normal mood/affect, oriented x 3 Skin: normal color, warm/dry, no rash (Alka. Hubbard MD) Hospital Course 31 year old male with PMHx of HTN, HLD, LBBB, critical aortic dissection 2014, admitted for evaluation of short-lived symptoms of chest sensation associated with metallic taste in his mouth and perioral numbness HTN urgency - Patient's sBP on arrival was > 200, though he was asymptomatic at the time of evaluation for admission. - IV Labetalol 20mg was administered in the ER, returning his pressure ~ 140/ 80. No further labetalol was needed as his pressures subsequently remained within acceptable ranges - Home meds were continued without adjustment: Enalapril 10mg BID and metoprolol 100mg BID - May benefit from sleep study for SHARI (presumptive based on weight), which could impede proper BP control and put him at further risk of recurrent dissection. Elevated troponin - Unclear if this is chronic. Three sets were negative. - EKG is nondiagnostic and does not meet Sgarbossa criteria - Cardiology was consulted - Echo performed. Was technically difficult, but did not show obvious structural defects - On discharge, continue metoprolol and atorvastatin daily as prescribed. Aspirin 81mg daily was prescribed. History of dissection - No acute findings on CTA - Advised for improved lifestyle management of diet, weight and stress - Continue enalapril, metoprolol and atorvastatin Total Time Spent: Less than 30 minutes This includes examination of the patient, discharge planning, medication reconciliation, and communication with other providers. (Alka. Hubbard MD) Discharge Instructions Please refer to the electronic Patient Visit Report (Discharge Instructions) for additional information. (Alka. Hubbard MD) History Resident Physician Supervision Note: I was present with Dr. Hubbard during the history and exam. I discussed the case with the resident and agree with the findings and plan as documented in the note. Any exceptions or clarifications are listed here. Pt seen and examined at bedside. Resolution of paresthesias and pressure sensation without recurrence. No previous h/o same. Considerable increased stress of late (4+ wks of work contiguously). Reviewed weight - heaviest he's ever been. No dietary awareness, though mother reports only one meal per day. Drinks ~500 calories per day. Interested in weight loss. No exercise. (Murali Christianson MD) General Appearance: no apparent distress, obese Neck: non-tender, full range of motion, supple Respiratory: chest non-tender, lungs clear, normal breath sounds, no respiratory distress Cardiovascular: normal peripheral pulses, regular rate, rhythm, no murmur (Murali Christianson MD) Assessment/Plan 31 y/o male h/o HTN, hyperlipidemia, LBBB s/p aortic dissection w/ repair in 2014 p/w perioral paresthseias and chest discomfort Chest discomfort w/ elevated troponin - cardiology consulted - continue ASA, statin, B viviana HTN urgency - resolved, continue present medications Hyperlipidemia - continue statin therapy Obesity - reviewed potential weight loss options including bariatric surgery - would recommend establish w/ PCP to begin lifestyle changes (Murali Christianson MD)
== END 2017-02-01 16:31 | disposition home or self-care (01) ==
LOC: C.EDB 02:12 → C.2T 06:40 → ENRESERV 07:15
PROVIDERS: ADMIT Internal Medicine; ATTEND Internal Medicine
DX: R07.89 Other chest pain (principal); I16.1 Hypertensive emergency; R79.89 Other specified abnormal findings of blood chemistry; I44.7 Left bundle-branch block, unspecified; E78.5 Hyperlipidemia, unspecified; E66.9 Obesity, unspecified; Z79.82 Long term (current) use of aspirin; Z79.899 Other long term (current) drug therapy

== ENCOUNTER 2019-10-31 10:24 | Inpatient (IN) ==
--- OUTSIDE RECORDS SUMMARY | 2019-10-31 10:28 | External Medical Summary | Continuity of Care Document ---
:1985 Author Name Sidra Smalls, Provider Address Unavailable Unavailable , Care Team Providers Name Role Phone Jack De La Rosa DO Unavailable [email or web address], [email or web address] Unavailable Unavailable Problems Acute thoracic aortic dissection (441.01) (I71.01) Hypertension (401.9) (I10) Paroxysmal atrial fibrillation (427.31) (I48.0) Tobacco use (305.1) (Z72.0) Allergies and Adverse Reactions Animal dander - Cats (Allergy) Dust (Allergy) Dust Mite (Allergy) Mold (Allergy) Medications Norvasc 5 MG Oral Tablet; TAKE 1 TABLET DAILY DIRECTED. Quantity: 90 Refills: 3 Lopressor 100 MG Oral Tablet; TAKE 1 TABLET EVERY 12 HOURS D AILY. Refills: 0 Vasotec 10 MG Oral Tablet; TAKE 1 TABLET TWICE DAILY. Refills: 0 Lipitor 40 MG Oral Tablet; TAKE 1 TABLET DAILY. Quantity: 90 Refills: 3 Ibuprofen 200 MG Oral Tablet; TAKE 1 TABLET 3 TIMES DAILY NEEDED. Refills: 0 Melatonin 3 MG Oral Tablet; TAKE DIRECTED. Refills: 0 Aspirin 81 MG Oral Tablet Delayed Release; TAKE 1 TABLET LEANNA LY. Refills: 0 Procedures Procedures not documented Immunizations Tdap (Adacel) On: 03-Jul-2002 Social History - Smoking Status Never smoked tobacco Plan of Treatment Planned Observations Planned Goals not documented Results No Known Results Results not documented Encounters Appointment; Jack De La Rosa DO 31-Mar-2017 8:30 Encounter Diagnosis: Problem not documented
--- OUTSIDE RECORDS SUMMARY | 2019-10-31 10:28 | External Medical Summary | Continuity of Care Document ---
:1985 Author Name Sidra Smalls, Provider Address Unavailable Unavailable , Care Team Providers Name Role Phone Jack De La Rosa DO Unavailable [email or web address], [email or web address] Unavailable Unavailable Problems Tobacco use (305.1) (Z72.0) Paroxysmal atrial fibrillation (427.31) (I48.0) Hypertension (401.9) (I10) Acute thoracic aortic dissection (441.01) (I71.01) Allergies and Adverse Reactions Animal dander - [...]
[2019-10-31] MEDS ORDERED: METOPROLOL TARTRATE 100 MG TAB PO STA (10:54)
[2019-10-31] MEDS ORDERED: METOPROLOL TARTRATE 1 MG/ML VIAL IV STA ×3 (10:59→12:11)
[2019-10-31] MEDS ORDERED: METOPROLOL TARTRATE 50 MG TAB ONE (11:01)
--- NOTE | 2019-10-31 11:06 | Emergency Department Note ---
Impression & Plan Atrial fibrillation with rapid ventricular response, Elevated troponin ED Provider Note NAME: KALYAN BARNES AGE: 34 SEX: M ARRIVES VIA: Walk-In INFORMANT: [Patient][, ] ED PROVIDER(S): Jesus Mercado MD CHIEF COMPLAINT: Rapid heartbeat PLAN: Disposition: Admitted Condition: [Good] MEDICAL DECISION MAKING: Patient presented with palpitations. He was found to have A. fib with RVR. He was given multiple doses of IV Lopressor as well as oral Lopressor. The patient was found to have an unremarkable CBC and chemistry panel. He does have a mildly elevated troponin. Further management will be necessary in the hospital. Chest x-ray was negative. I consulted with the not any hospital service. The patient was evaluated in the ER for further management. Triage Nursing notes reviewed and agree them. Vital Signs: reviewed and remarkable for [no significant abnormalities] Differential diagnosis: Premature contractions, electrolyte abnormality, cardiac dysrhythmia, thyroid dysfunction, pulmonary embolism, infection, gastrointestinal, as well as other pathologies. ER treatment provided: IV Lopressor 5 mg x 3 Oral metoprolol 100 mg Diagnostics interpreted by me: ECG: Atrial fibrillation with rapid ventricular response at 134 bpm. Left bundle branch block present. No significant ST elevation. No PVCs. When compared to prior A. fib has replaced sinus rhythm. Cardiac Monitoring: Cardiac monitoring ordered by me: The patient was placed on continuous cardiac monitoring and observed. It revealed a atrial fibrillation at 140 beats per minute without ectopy or evidence of dysrhythmia. Laboratory studies: [See below] unremarkable CBC and chemistry panel. Elevated troponin. Imaging studies: Chest x-ray. Findings: A chest x-ray was performed and revealed no pneumothorax, effusion, infiltrate, pulmonary edema, free air under the diaphragm, or wide mediastinum. Impression: No acute disease. Consultation(s): Not any hospitalist, Dr. Hsu HPI: 34/M arrives for evaluation of left artery. The patient states he woke up this morning and felt some palpitations. He took his pulse and noted it was in the 80s. It then seemed to worsen and he took his pulse again and he was overall 140. He did not take his morning metoprolol this morning. He does have a history of aortic dissection 5 years ago. He notes some history of palpitations and possibly A. fib at the time of his heart surgery. He has been followed by [facility] cardiology. He denies any recent illnesses. There was some associated diaphoresis and general malaise when his heart rate was tachycardic. He denies any pain. Pt denies LOC, headache, fevers, chills, visual changes, neck pain, chest pain, breathing difficulties, nausea, vomiting, abdominal pain, back pain, melena, hematochezia, urinary symptoms, numbness, weakness, lymphadenopathy, rash, or other complaints. ROS: See above HPI for pertinent positives & negatives. A total of [10] systems reviewed and were otherwise negative. PAST MEDICAL HISTORY:[See Below] aortic dissection PAST SURGICAL HISTORY:[See Below] FAMILY HISTORY:[See Below] SOCIAL HISTORY:[See Below] no alcohol HOME MEDICATIONS:[See Below] ALLERGIES:[See Below] VITALS:[See Below] PHYSICAL EXAMINATION: GENERAL: Awake, alert, diaphoretic-appearing, in no distress HENT: Normocephalic, atraumatic. Oropharynx unremarkable. EYES: Normal conjunctiva. Sclera non-icteric. NECK: Inspection normal. Non-tender. Supple. No nuchal rigidity. FROM. No masses. RESPIRATORY: Clear to auscultation. No wheezes. No rales. Normal respiratory effort. CARDIAC: Tachycardic rate. Irregular rhythm. No murmurs. No rubs. Extremities warm and well perfused. Pulses equal. No JVD. GI: Soft, non-distended. No tenderness to palpation. No rebound or guarding. No masses. RECTAL: Deferred. MUSCULOSKELETAL: Atraumatic. Chest examination reveals no tenderness. The back is symmetrical on inspection without obvious abnormality. There is no CVA tenderness to palpation. No joint edema. LOWER EXTREMITIES: Calves are equal size bilaterally and non-tender. No edema. No discoloration. NEURO: Normal sensorium. No sensory or motor deficits noted. SKIN: No rash or jaundice noted. ED COURSE: [Critical Care:] I have personally spent greater than 32 minutes of critical care time in the direct management of this patient. This includes bedside care, interpretation of diagnostic studies, and testing, discussion with consultants, patient, and other required patient management activities. These minutes are in excess of all separately billable procedures. Jesus Mercado MD Past Med/Surg History Medical History (Updated 10/31/19 @ 20:03 by Jesus Mercado MD) Aortic dissection (Acute) HOCM (hypertrophic obstructive cardiomyopathy) s/p myomectomy HTN (hypertension) (Chronic) Surgical History H/O inguinal hernia repair as child S/P aortic dissection repair S/P tonsillectomy Family History Mother Hypothyroidism Father Unknown family medical history Social History Preferred Language: [place] Communication Ability: Effective Beliefs That Will Affect Care: None marital status: Single Current Living Situation: Other Current Living Situation Comment: room-mate current occupational status: employed 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 [employer] Feels Safe at Home: Yes Safety Concerns: Feels Safe At This Time Smoking Status: Current some day smoker Hx Alcohol Use: Yes Alcohol type: beer Alcohol Intake Frequency: Rarely Hx Substance Use: Yes substance use type: marijuana Last Used Substance Other:: LAST NIGHT Allergies Allergies Allergy/AdvReac Type Severity Reaction Status Date / Time mold Allergy Unknown resp sx Verified 10/31/19 11:05 Dust Allergy Unknown resp sx Uncoded 10/31/19 11:05 Home Meds Home Medications Medication Instructions Recorded Confirmed albuterol sulfate [Ventolin HFA] 1 inh INHALATION QID PRN 10/31/19 10/31/19 atorvastatin 40 mg PO QAM 10/31/19 10/31/19 enalapril maleate 10 mg PO BID 10/31/19 10/31/19 hydralazine 12.5 mg PO BID 10/31/19 10/31/19 metoprolol tartrate 100 mg PO BID 10/31/19 10/31/19 Results & Data (ED) Vital Signs Vital Signs - 24 hr 10/31/19 10:28 10/31/19 10:48 10/31/19 10:50 Temperature 36.3 C L Temperature Source Oral Pulse Rate 116 H 132 H 126 H Pulse Rate from SpO2 Sensor 106 H 130 H Respiratory Rate 20 19 21 Respiratory Effort / Characteristics Non-Labored Respiratory Depth Normal Blood Pressure 182/94 H 150/106 H Blood Pressure Mean 123 121 Pulse Oximetry 98 97 95 Oxygen Delivery Method Room Air Sepsis Recent Fever Within 48 Hours No Sepsis Action Taken by Nursing No Action Required 10/31/19 11:03 10/31/19 11:04 10/31/19 11:07 Temperature Temperature Source Pulse Rate 141 H 141 H 141 H Pulse Rate from SpO2 Sensor Respiratory Rate 18 20 Respiratory Effort / Characteristics Respiratory Depth Blood Pressure 182/94 H 143/80 H Blood Pressure Mean 98 Pulse Oximetry Oxygen Delivery Method Sepsis Recent Fever Within 48 Hours Sepsis Action Taken by Nursing 10/31/19 11:08 10/31/19 11:15 10/31/19 11:31 Temperature Temperature Source Pulse Rate 128 H 118 H 119 H Pulse Rate from SpO2 Sensor Respiratory Rate 15 22 19 Respiratory Effort / Characteristics Respiratory Depth Blood Pressure Blood Pressure Mean Pulse Oximetry Oxygen Delivery Method Sepsis Recent Fever Within 48 Hours Sepsis Action Taken by Nursing 10/31/19 11:38 10/31/19 11:40 10/31/19 11:45 Temperature Temperature Source Pulse Rate 112 H 97 H 113 H Pulse Rate from SpO2 Sensor Respiratory Rate 15 20 Respiratory Effort / Characteristics Respiratory Depth Blood Pressure 143/80 H 100/82 143/99 H Blood Pressure Mean 90 116 Pulse Oximetry Oxygen Delivery Method Sepsis Recent Fever Within 48 Hours Sepsis Action Taken by Nursing 10/31/19 11:46 10/31/19 12:00 10/31/19 12:15 Temperature Temperature Source Pulse Rate 130 H 108 H 98 H Pulse Rate from SpO2 Sensor Respiratory Rate 20 16 15 Respiratory Effort / Characteristics Respiratory Depth Blood Pressure 123/88 Blood Pressure Mean 104 Pulse Oximetry Oxygen Delivery Method Sepsis Recent Fever Within 48 Hours Sepsis Action Taken by Nursing 10/31/19 12:27 10/31/19 12:30 10/31/19 12:31 Temperature Temperature Source Pulse Rate 101 H 103 H 113 H Pulse Rate from SpO2 Sensor Respiratory Rate 22 24 Respiratory Effort / Characteristics Respiratory Depth Blood Pressure 123/88 126/100 Blood Pressure Mean 120 Pulse Oximetry Oxygen Delivery Method Sepsis Recent Fever Within 48 Hours Sepsis Action Taken by Nursing 10/31/19 12:45 10/31/19 13:00 10/31/19 13:01 Temperature Temperature Source Pulse Rate 109 H 97 H 105 H Pulse Rate from SpO2 Sensor Respiratory Rate 15 24 21 Respiratory Effort / Characteristics Respiratory Depth Blood Pressure 116/81 Blood Pressure Mean 96 Pulse Oximetry Oxygen Delivery Method Sepsis Recent Fever Within 48 Hours Sepsis Action Taken by Nursing 10/31/19 13:07 10/31/19 13:15 10/31/19 13:30 Temperature Temperature Source Pulse Rate 110 H 101 H 104 H Pulse Rate from SpO2 Sensor Respiratory Rate 17 14 20 Respiratory Effort / Characteristics Respiratory Depth Blood Pressure 126/95 136/94 Blood Pressure Mean 104 111 Pulse Oximetry Oxygen Delivery Method Sepsis Recent Fever Within 48 Hours Sepsis Action Taken by Nursing 10/31/19 13:31 10/31/19 13:45 10/31/19 14:00 Temperature Temperature Source Pulse Rate 112 H 95 H 99 H Pulse Rate from SpO2 Sensor Respiratory Rate 20 15 12 Respiratory Effort / Characteristics Respiratory Depth Blood Pressure 129/99 Blood Pressure Mean 112 Pulse Oximetry Oxygen Delivery Method Sepsis Recent Fever Within 48 Hours Sepsis Action Taken by Nursing 10/31/19 14:01 Temperature Temperature Source Pulse Rate 83 Pulse Rate from SpO2 Sensor Respiratory Rate 14 Respiratory Effort / Characteristics Respiratory Depth Blood Pressure Blood Pressure Mean Pulse Oximetry Oxygen Delivery Method Sepsis Recent Fever Within 48 Hours Sepsis Action Taken by Nursing Laboratory Data Result diagrams: 10/31/19 10:50 10/31/19 10:50 Lab Results 10/31/19 10/31/19 10/31/19 Range/Units 10:50 10:50 10:50 WBC 9.23 (4.8-10.8) K/uL RBC 5.57 (4.7-6.1) M/uL Hgb 17.8 (14.0-18.0) g/dL Hct 50.6 (42-52) % MCV 90.8 (80-100) fL MCH 32.0 (25-34) pg MCHC 35.2 (32-36) g/dL RDW Std Deviation 41.0 (36.4-46.3) fL RDW Coeff of Louann 12.3 (11.5-14.5) % Plt Count 303 (130-400) K/uL MPV 10.4 (7.4-10.4) fL Immature Gran % (Auto) 0.2 % Neut % (Auto) 62.8 % Lymph % (Auto) 28.3 % [place] % (Auto) 7.2 % Eos % (Auto) 1.3 % Baso % (Auto) 0.2 % Immature Gran # (Auto) 0.02 (0.00-0.02) K/uL Neut # (Auto) 5.80 (1.4-6.5) K/uL Lymph # (Auto) 2.61 (1.2-3.4) K/uL [place] # (Auto) 0.66 H (0.11-0.59) K/uL Eos # (Auto) 0.12 (0-0.5) K/uL Baso # (Auto) 0.02 (0-0.2) K/uL PT 11.3 (9.0-12.0) Seconds INR 1.1 (0.9-1.1) APTT 28.2 (21.0-31.0) Seconds PTT Ratio 1.0 Sodium 140 (136-145) mmol/L Potassium 4.3 (3.5-5.1) mmol/L Chloride 106 (98-107) mmol/L Carbon Dioxide 26 (21-32) mmol/L Anion Gap 8.0 (3-11) BUN 15 (7-18) mg/dl Creatinine 1.08 (0.6-1.4) mg/dl Est Cr Clr Drug Dosing 115.6 ml/min Est GFR ( Amer) 102.5 Est GFR (Non-Af Amer) 88.5 BUN/Creatinine Ratio 13.6 (10-20) Glucose 152 H (70-99) mg/dl Calcium 9.6 (8.5-10.1) mg/dl Magnesium 2.0 (1.8-2.4) mg/dl Total Bilirubin 0.7 (0.2-1) mg/dl AST 46 H (15-37) U/L ALT 85 H (12-78) U/L Alkaline Phosphatase 155 H (45-117) U/L Troponin I 0.059 H* (0-0.045) ng/ml Total Protein 8.5 H (6.4-8.2) gm/dl Albumin 4.3 (3.4-5.0) gm/dl Globulin 4.2 H (2.5-4.0) gm/dl Albumin/Globulin Ratio 1.0 (0.9-2) TSH 1.870 (0.300-4.500) uIu/ml Administered Medications Diltiazem HCl 125 mg/ Dextrose 125 mls @ 5 mls/hr IV .Q24H [facility]; Protocol Stop: 11/30/19 14:29 Last Titration: 10/31/19 17:52 Dose: 5 mg/hr, 5 mls/hr Documented by: [id number] Cosigned by: [id number] Admin: 10/31/19 14:18 Dose: 5 mg/hr, 5 mls/hr Documented by: [id number] Cosigned by: [id number] Heparin Sodium/Dextrose (Heparin Sodium/Dextrose) 25,000 units in 500 mls @ 31 mls/hr IV .Q16H8M [facility]; Protocol Stop: 11/30/19 13:59 Last Titration: 10/31/19 17:51 Dose: 1,550 units/hr, 31 mls/hr Documented by: [id number] Cosigned by: [id number] Admin: 10/31/19 15:15 Dose: 1,550 units/hr, 31 mls/hr Documented by: [id number] Cosigned by: [id number] Discontinued Medications Heparin Sodium/Dextrose () 1 ea IV Q15M [facility]; Protocol Stop: 10/31/19 14:45 Last Admin: 10/31/19 17:51 Dose: Not Given Documented by: [id number] Admin: 10/31/19 17:49 Dose: Not Given Documented by: [id number] Admin: 10/31/19 15:16 Dose: Not Given Documented by: [id number] Admin: 10/31/19 15:16 Dose: Not Given Documented by: [id number] Heparin Sodium/Dextrose (Heparin Sodium/Dextrose) Confirm Administered Dose 25,000 units IV .STK-MED ONE Stop: 10/31/19 14:56 Last Admin: 10/31/19 15:44 Dose: Not Given Documented by: [id number] Metoprolol Tartrate (Lopressor) 100 mg PO NOW STA Stop: 10/31/19 10:55 Last Admin: 10/31/19 11:04 Dose: 100 mg Documented by: [id number] Metoprolol Tartrate (Lopressor) 5 mg IV NOW STA Stop: 10/31/19 11:00 Last Admin: 10/31/19 11:04 Dose: 5 mg Documented by: [id number] Metoprolol Tartrate (Lopressor) 5 mg IV NOW STA Stop: 10/31/19 11:35 Last Admin: 10/31/19 11:38 Dose: 5 mg Documented by: [id number] Metoprolol Tartrate (Lopressor) 5 mg IV NOW STA Stop: 10/31/19 12:12 Last Admin: 10/31/19 12:27 Dose: 5 mg Documented by: [id number] Metoprolol Tartrate (Lopressor) Confirm Administered Dose 100 mg .ROUTE .STK-MED ONE Stop: 10/31/19 11:02 Last Admin: 10/31/19 15:28 Dose: Not Given Documented by: [id number] Discharge Plan Visit Data *Final* Discharge Date/Time: 10/31/19 17:14 Chief Complaint: Cardiac Assessment Stated Complaint: RACING HEARTBEAT-FEELS LIKE POUNDING OUT CHEST ED Provider: Jesus Mercado Discharge Problem: Atrial fibrillation with rapid ventricular response, Elevated troponin Patient Disposition: Admitted As Inpatient Discharge Instructions Interventions: ED Discharge Assessment Last Done: 10/31/19 17:14
[2019-10-31 11:09] LABS: Basophils # (auto) 0.02 K/uL (0-0.2); Basophils % (auto) 0.2 %; Eosinophils # (auto) 0.12 K/uL (0-0.5); Eosinophils % (auto) 1.3 %; Hematocrit (blood only) 50.6 % (42-52); Hemoglobin 17.8 g/dL (14.0-18.0); Immature Granulocytes # (auto) 0.02 K/uL (0.00-0.02); Immature Granulocytes % (auto) 0.2 %; Lymphocytes # (auto) 2.61 K/uL (1.2-3.4); Lymphocytes % (auto) 28.3 %; Mean Corpuscular Hgb Conc 35.2 g/dL (32-36); Mean Corpuscular Volume 90.8 fL (80-100); Mean Platelet Volume 10.4 fL (7.4-10.4); Monocytes # (auto) 0.66 K/uL (0.11-0.59); Monocytes % (auto) 7.2 %; Neutrophils % (auto) 62.8 %; Platelet Count 303 K/uL (130-400); RDW Coefficient of Variation 12.3 % (11.5-14.5); Red Blood Count 5.57 M/uL (4.7-6.1); White Blood Count 9.23 K/uL (4.8-10.8)
[2019-10-31 11:22] LABS: INR 1.1 (0.9-1.1); Partial Thromboplastin Time 28.2 Seconds (21.0-31.0); Prothrombin Time 11.3 Seconds (9.0-12.0)
[2019-10-31 11:29] LABS: Albumin Level 4.3 gm/dl (3.4-5.0); BUN Creatinine Ratio 13.6 (10-20); Calcium 9.6 mg/dl (8.5-10.1); Creatinine Clr Calc Pharmacy 115.6 ml/min; Est GFR (African American) 102.5; Est GFR (Non-African American) 88.5; Potassium 4.3 mmol/L (3.5-5.1)
[2019-10-31 11:45] LABS: Bilirubin,Total 0.7 mg/dl (0.2-1); Globulin 4.2 gm/dl (2.5-4.0); Thyroid Stimulating Hormone 1.87 uIu/ml (0.300-4.500); Total Protein 8.5 gm/dl (6.4-8.2); Troponin I 0.059 ng/ml (0-0.045)
--- NOTE | 2019-10-31 11:45 | XRay Report ---
XR chest 1V portable CLINICAL HISTORY: tachycardia COMPARISON STUDY: Chest radiograph and chest CT February 01, 2017. FINDINGS: Median sternotomy wires are noted. Moderate cardiomegaly is unchanged. There is no evidence for pulmonary edema. No consolidation is present. There is no pneumothorax or pleural effusion. IMPRESSION: No acute cardiopulmonary findings. Moderate cardiomegaly. ACT 112: Negative or not required by law. Electronically signed by: Natanael Calle M.D. 10/31/2019 11:43 AM
--- NOTE | 2019-10-31 12:37 | Electrocardiogram Report ---
Test Reason : Blood Pressure : / mmHG Vent. Rate : 138 BPM Atrial Rate : 202 BPM P-R Int : 000 ms QRS Dur : 174 ms QT Int : 358 ms P-R-T Axes : 000 057 229 degrees QTc Int : 542 ms Poor data quality, interpretation may be adversely affected Atrial fibrillation with rapid ventricular response with premature ventricular or aberrantly conducte d complexes Left bundle branch block Abnormal ECG When compared with ECG of 01-FEB-2017 02:41, Atrial fibrillation has replaced Sinus rhythm Vent. rate has increased BY 65 BPM Confirmed by Murali Alvarez ([id number]) on 10/31/2019 12:36:27 PM Referred By: ED Confirmed By:Getachew Alvarez
--- NOTE | 2019-10-31 13:24 | History & Physical Report ---
Date of Service October 31, 2019 Assessment & Plan (1) Atrial fibrillation with rapid ventricular response: In the setting of chronic beta viviana usage. Rates still high despite IV lopressor x 3 doses in ER. Thus, start cardizem infusion 5mg/hr with titration parameters. Start heparin drip, standard protocol. I spoke with Dr Garcia who will consult. ISAI cardioversion a consideration if he doesn't spontaneously convert. Keep NPO after MN for possible ISAI cardioversion tomorrow. COVID-19 PCR negative. Additionally, TSH, K and mag all wnl. (2) Abnormal LFTs: Uncertain etiology. He reports that his LFTs have been normal in the past. Differential - medication (lipitor) vs fatty liver vs infectious vs other. Hold lipitor. Repeat LFTs am. consider dedicated RUQ u/s. (3) S/P aortic dissection repair: along with myomectomy for HCOM. 2014. (4) HOCM (hypertrophic obstructive cardiomyopathy): with past myomectomy. echo done in [facility] clinic a few weeks ago; will obtain that report. (5) Dyspnea: suspect due to rapid a.fib. no evidence of decompensated CHF. COVID-19 PCR negative. no evidence of bronchospasm. (6) Morbid obesity with BMI of 40.0-44.9, adult: BMI 44 (7) Elevated troponin: likely myocardial demand ischemia 2nd to rapid a.fib no evidence of ACS (8) LBBB (left bundle branch block): chronic (9) DVT prophylaxis: will be on heparin infusion in setting of rapid a.fib care d/w Dr Garcia, [facility] History of Present Illness Chief Complaint: palpitations Primary Care Provider: NO PCP 34yo male with history of aortic dissection in 2015 s/p repair, followed by Trey PAGE at [facility], who presents with palpitations. Last Thursday or Thursday he had palpitations for about 1 hour. Heart was beating "harder" and irregularly. Resolved on own. Yesterday he noted some mild dyspnea on exertion when walking up the steps at his home to do laundry. This did not prevent him from going for a round of golf yesterday afternoon (golfed for 5 hours). [place] fine after golf. He did not experience shortness of breath with golf. Then, this am about 0915, he experienced palpitations and tachycardia with irregular heart beating. He had mild dyspnea again. The symptoms were similar to last Thursday/Thursday. He took his BP and the systolic BP was 130s. The heart rate was ultimately elevated in the 140s and thus he came to the hospital. Denies any chest pain. On Thursday/Thursday of this weekend he had dry cough, runny nose, and dyspnea but no fevers/chills/nausea/emesis/loss of taste/smell. No myalgias (a little achy from his golf game). No recent travel. Just had office visit with Mr Huffman about 3-4 weeks ago. Had echo, blood work, etc - all was well at that time. Allergies Allergy/AdvReac Type Severity Reaction Status Date / Time mold Allergy Unknown resp sx Verified 10/31/19 11:05 Dust Allergy Unknown resp sx Uncoded 10/31/19 11:05 Home Medications Home Medications Medication Instructions Recorded Confirmed Type albuterol sulfate [Ventolin HFA] 1 inh INHALATION QID PRN 10/31/19 10/31/19 History atorvastatin 40 mg PO QAM 10/31/19 10/31/19 History enalapril maleate 10 mg PO BID 10/31/19 10/31/19 History hydralazine 12.5 mg PO BID 10/31/19 10/31/19 History metoprolol tartrate 100 mg PO BID 10/31/19 10/31/19 History Past Med/Surg History Medical History (Updated 10/31/19 @ 22:41 by Elder Hsu) Aortic dissection (Acute) HOCM (hypertrophic obstructive cardiomyopathy) s/p myomectomy HTN (hypertension) (Chronic) LBBB (left bundle branch block) PAF (paroxysmal atrial fibrillation) history of - post-op from aortic dissection repair Surgical History H/O inguinal hernia repair as child S/P aortic dissection repair S/P tonsillectomy Family History Mother Hypothyroidism Father Unknown family medical history Social History Preferred Language: Upper Sorbian Communication Ability: Effective Beliefs That Will Affect Care: None marital status: Single Current Living Situation: Other Current Living Situation Comment: room-mate current occupational status: employed 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 [employer] Feels Safe at Home: Yes Safety Concerns: Feels Safe At This Time Smoking Status: Current some day smoker Hx Alcohol Use: Yes Alcohol type: beer Alcohol Intake Frequency: Rarely Hx Substance Use: Yes substance use type: marijuana Last Used Substance Other:: LAST NIGHT Review of Systems Constitutional: + fatigue; no fever, no chills, no body aches and no anorexia Eyes: no worsening vision Ear, Nose, Mouth, Throat: + nasal discharge; no nasal congestion, no sore throat and no dysphagia Respiratory: + cough and + dyspnea on exertion Cardiovascular: no chest pain Gastrointestinal: no abdominal pain, no nausea, no vomiting and no diarrhea/loose stools Genitourinary: + urinary frequency; no dysuria Musculoskeletal: + back pain; no myalgia Integumentary: no rash Neurologic: no localized weakness and no loss of sensation Psychiatric: + anxiety; no depression Endocrine: no diabetes Hematologic / Lymphatic: no easy bruising Physical Exam Constitutional: + morbidly obese; no acute distress, not ill appearing and not frail appearing Eyes: + anicteric sclerae and PERRL ENMT: external ear and nose normal, oropharynx normal Neck: trachea midline, no thyromegaly Respiratory: normal respiratory effort, lungs clear to auscultation Cardiovascular: Rate/Rhythm: + tachycardic and + irregularly irregular Heart Sounds: normal S1, normal S2 and + murmur (1-2/6 RUSB systolic ) Vessels: posterior tibial pulses present and dorsalis pedis pulses present; no JVD Extremities: no edema Gastrointestinal (Abdomen): normal bowel sounds, soft, nontender, no hepatosplenomegaly Musculoskeletal: no cyanosis or clubbing, extremities motor strength 5/5 Skin: no rashes, warm and dry Neurologic: deep tendon reflexes 2+ bilaterally and moves all extremities; no focal motor deficits Psychiatric: A+Ox3, euthymic affect Lymphatic: no cervical lymphadenopathy Results & Data Results & Data ([facility]) Vital Signs (Past 12 Hours) Vital Signs Temp Pulse Resp BP Pulse Ox 10/31/19 12:45 109 H 15 10/31/19 12:31 113 H 24 10/31/19 12:30 103 H 22 126/100 10/31/19 12:27 101 H 123/88 10/31/19 12:15 98 H 15 10/31/19 12:00 108 H 16 123/88 10/31/19 11:46 130 H 20 10/31/19 11:45 113 H 20 143/99 H 10/31/19 11:40 97 H 15 100/82 10/31/19 11:38 112 H 143/80 H 10/31/19 11:31 119 H 19 10/31/19 11:15 118 H 22 10/31/19 11:08 128 H 15 10/31/19 11:07 141 H 20 143/80 H 10/31/19 11:04 141 H 182/94 H 10/31/19 11:03 141 H 18 10/31/19 10:50 126 H 21 95 10/31/19 10:48 132 H 19 150/106 H 97 10/31/19 10:28 36.3 C L 116 H 20 182/94 H 98 Laboratory Results Laboratory Results - last 24 hr 10/31/19 10/31/19 10/31/19 10:50 10:50 10:50 WBC 9.23 RBC 5.57 Hgb 17.8 Hct 50.6 MCV 90.8 MCH 32.0 MCHC 35.2 RDW Std Deviation 41.0 RDW Coeff of Louann 12.3 Plt Count 303 MPV 10.4 Immature Gran % (Auto) 0.2 Neut % (Auto) 62.8 Lymph % (Auto) 28.3 [place] % (Auto) 7.2 Eos % (Auto) 1.3 Baso % (Auto) 0.2 Immature Gran # (Auto) 0.02 Neut # (Auto) 5.80 Lymph # (Auto) 2.61 [place] # (Auto) 0.66 H Eos # (Auto) 0.12 Baso # (Auto) 0.02 PT 11.3 INR 1.1 APTT 28.2 PTT Ratio 1.0 Sodium 140 Potassium 4.3 Chloride 106 Carbon Dioxide 26 Anion Gap 8.0 BUN 15 Creatinine 1.08 Est Cr Clr Drug Dosing 115.6 Est GFR ( Amer) 102.5 Est GFR (Non-Af Amer) 88.5 BUN/Creatinine Ratio 13.6 Glucose 152 H Calcium 9.6 Magnesium 2.0 Total Bilirubin 0.7 AST 46 H ALT 85 H Alkaline Phosphatase 155 H Troponin I 0.059 H* Total Protein 8.5 H Albumin 4.3 Globulin 4.2 H Albumin/Globulin Ratio 1.0 TSH 1.870 COVID-19 PCR SARS-CoV-2 RNA (RT-PCR) 10/31/19 10/31/19 10/31/19 14:24 18:07 21:37 WBC RBC Hgb Hct MCV MCH MCHC RDW Std Deviation RDW Coeff of Louann Plt Count MPV Immature Gran % (Auto) Neut % (Auto) Lymph % (Auto) [place] % (Auto) Eos % (Auto) Baso % (Auto) Immature Gran # (Auto) Neut # (Auto) Lymph # (Auto) [place] # (Auto) Eos # (Auto) Baso # (Auto) PT INR APTT 56.1 H* PTT Ratio 2.0 Sodium Potassium Chloride Carbon Dioxide Anion Gap BUN Creatinine Est Cr Clr Drug Dosing Est GFR ( Amer) Est GFR (Non-Af Amer) BUN/Creatinine Ratio Glucose Calcium Magnesium Total Bilirubin AST ALT Alkaline Phosphatase Troponin I 0.047 H* Total Protein Albumin Globulin Albumin/Globulin Ratio TSH COVID-19 PCR SARS-CoV-2 RNA (RT-PCR) Cancelled 10/31/19 Unknown WBC RBC Hgb Hct MCV MCH MCHC RDW Std Deviation RDW Coeff of Louann Plt Count MPV Immature Gran % (Auto) Neut % (Auto) Lymph % (Auto) [place] % (Auto) Eos % (Auto) Baso % (Auto) Immature Gran # (Auto) Neut # (Auto) Lymph # (Auto) [place] # (Auto) Eos # (Auto) Baso # (Auto) PT INR APTT PTT Ratio Sodium Potassium Chloride Carbon Dioxide Anion Gap BUN Creatinine Est Cr Clr Drug Dosing Est GFR ( Amer) Est GFR (Non-Af Amer) BUN/Creatinine Ratio Glucose Calcium Magnesium Total Bilirubin AST ALT Alkaline Phosphatase Troponin I Total Protein Albumin Globulin Albumin/Globulin Ratio TSH COVID-19 PCR NEGATIVE SARS-CoV-2 RNA (RT-PCR) Diagnostic Findings cxr - no acute process EKG - rapid a.fib with LBBB Code Status & VTE Plan Code Status full PG Care Time/CCT Total # of Minutes Spent Total Time Spent with Patient: Total time spent is greater than 50% in coordination of care (as documented) at patient's floor/unit and/or counseling patient: Coding Level of Care Code 45434 Initial Inpt Care Lvl 3 Diagnoses Atrial fibrillation with rapid ventricular response I48.91 Abnormal LFTs R94.5 S/P aortic dissection repair Z98.890 HOCM (hypertrophic obstructive cardiomyopathy) I42.1 Dyspnea R06.09 Dyspnea type: other forms of dyspnea Morbid obesity with BMI of 40.0-44.9, adult E66.01; Z68.41 Elevated troponin R79.89 LBBB (left bundle branch block) I44.7 DVT prophylaxis Z29.9 (1) Dyspnea Dyspnea type: other forms of dyspnea Qualified Code(s): R06.09 - Other forms of dyspnea
[2019-10-31] MEDS ORDERED: STAT IV Infusion **Titration per Protocol STA (13:54)
[2019-10-31] MEDS: dilTIAZem HCL 125 MG in DEXTROSE 5% 100 ML IV SCH (14:18)
[2019-10-31] MEDS ORDERED: HEPARIN 25000 UNIT/500 ML D5W IV ONE (14:55)
[2019-10-31] MEDS: HEPARIN SODIUM/DEXTROSE 25,000 UNITS/500 ML BAG IV SCH (15:15)
[2019-10-31] MEDS: Heparin IV Standard *NO* Bolus IV SCH ×3 (15:16→17:51)
[2019-10-31] MEDS ORDERED: ONDANSETRON INJ 2 MG/ML 2 ML VIAL IV PRN (17:46)
[2019-10-31] MEDS ORDERED: ALBUTEROL HFA 8 GM INHALER INH PRN (17:46)
--- NOTE | 2019-10-31 17:51 | Cardiology Consultation ---
Date of Consultation October 31, 2019 Assessment & Plan (1) Atrial fibrillation with rapid ventricular response: The pathophysiology and treatment options of atrial fibrillation were discussed with the patient at great length today. We discussed the pros and cons of rate versus rhythm control and he would prefer to follow a rhythm control strategy. We also discussed the pros and cons of initiation of antiarrhythmic therapy to help reduce the risk of A. fib recurrence in the future and he states that he would like to pursue antiarrhythmic therapy. Sotalol therapy along with its risks, benefits and need for prolonged hospitalization were discussed with him and he agrees with initiation of sotalol. This will require continuous telemetry monitoring for 6 doses at least along with daily EKGs to follow QT interval. His electrolytes should be followed and repleted as necessary. We will proceed with ISAI guided cardioversion in the a.m. N.p.o. after midnight He should receive his p.m. dose of metoprolol this evening and then discontinue so that sotalol may be initiated after the cardioversion in the a.m. Continue Cardizem drip for rate control now. Continue heparin anticoagulation. We also discussed oral anticoagulants and he would prefer DOAC therapy and Eliquis will be initiated during this hospital stay based on his insurance coverage (2) S/P aortic dissection repair: Stable (3) HOCM (hypertrophic obstructive cardiomyopathy): Stable History of Present Illness Reason for Consultation: afib with rvr Requesting Physician: Dr. Hsu Attending Physician: Elder Hsu History of Present Illness It was my pleasure to see Mr. Cheng in consultation today October 31, 2019. He is a very pleasant 34-year-old gentleman who routinely follows with Trey Huffman of our cardiology practice. He presented to [facility] emergency department today with complaints of palpitations and tachycardia. He notes that he woke up this morning his normal state of health but quickly realized that his heart was beating irregularly in his chest. He states it was an uncomfortable sensation and he did feel little lightheaded at times with it. He initially checked his heart rate on his blood pressure cuff and was noted to be irregular in the 80s. He rechecked a little time later and it was in the 140s. At that time he came in the emergency department and upon arrival was confirmed to be in atrial fibrillation with rapid ventricular response. Upon further questioning states approximately 1 week ago he also had some palpitations over little different. He states that that time he just notices heart pounding a little harder than normal and his chest but otherwise he felt well. He notes that he was able go golfing yesterday without any limitations. He was ruled negative for COVID-19 in the ER. I discussed the case with Dr. Hsu and agreed that he should be started on a heparin drip along with the Cardizem these are he been started on. Past medical history: 1. Type I ascending aortic dissection 05/26/2014 status post surgical repair, 2. septal myectomy for hypertrophic cardiomyopathy and aortic root reconstruction with reimplantation of coronaries, 3. hypertension, 4. hyperlipidemia 5. mild obstructive sleep apnea and nocturnal hypoxemia, 6. probable fatty liver 7. Postoperative A. fib Allergies Allergy/AdvReac Type Severity Reaction Status Date / Time mold Allergy Unknown resp sx Verified 10/31/19 11:05 Dust Allergy Unknown resp sx Uncoded 10/31/19 11:05 Home Medications Home Medications Medication Instructions Recorded Confirmed Type albuterol sulfate [Ventolin HFA] 1 inh INHALATION QID PRN 10/31/19 10/31/19 History atorvastatin 40 mg PO QAM 10/31/19 10/31/19 History enalapril maleate 10 mg PO BID 10/31/19 10/31/19 History hydralazine 12.5 mg PO BID 10/31/19 10/31/19 History metoprolol tartrate 100 mg PO BID 10/31/19 10/31/19 History Patient History Medical History Aortic dissection (Acute) HTN (hypertension) (Chronic) Surgical History H/O inguinal hernia repair as child S/P aortic dissection repair S/P tonsillectomy Family History Mother Hypothyroidism Father Unknown family medical history Social History Preferred Language: [place] Communication Ability: Effective Beliefs That Will Affect Care: None marital status: Single Current Living Situation: Other Current Living Situation Comment: room-mate current occupational status: employed 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 No acute distress. HEENT: Normocephalic, atraumatic. Pupils equal, round and reactive to light and accommodation. Extraocular muscles are intact. Anicteric sclera. Moist mucous membranes. Neck: No JVD. No bruit. Cardiovascular: irregularly irregular, unable to appreciate murmur, rub or gallop. Pulmonary: Clear to auscultation bilaterally. No rales, rhonchi, or wheezing. Abdomen: Bowel sounds x 4, soft. No rebound, guarding or tenderness. No organomegaly. Extremities: No clubbing, cyanosis or edema. +2 pedal pulses bilaterally. Skin: Warm and dry. Results & Data ([facility]) Vital Signs (Past 12 Hours) Vital Signs Temp Pulse Resp BP Pulse Ox 10/31/19 17:00 94 H 23 152/98 H 97 10/31/19 16:49 83 22 139/97 97 10/31/19 16:32 85 16 97 10/31/19 16:31 87 24 139/97 97 10/31/19 16:30 81 20 98 10/31/19 16:01 75 14 126/89 95 10/31/19 16:00 87 16 94 10/31/19 15:31 113 H 14 116/90 94 10/31/19 15:30 105 H 16 93 10/31/19 15:16 107 H 13 94 10/31/19 15:15 96 H 18 147/76 H 94 10/31/19 15:02 100 H 13 10/31/19 15:00 93 H 15 10/31/19 14:45 97 H 20 10/31/19 14:36 108 H 15 153/97 H 10/31/19 14:15 110 H 17 10/31/19 14:01 83 14 10/31/19 14:00 99 H 12 129/99 10/31/19 13:45 95 H 15 10/31/19 13:31 112 H 20 10/31/19 13:30 104 H 20 136/94 10/31/19 13:15 101 H 14 10/31/19 13:07 110 H 17 126/95 10/31/19 13:01 105 H 21 10/31/19 13:00 97 H 24 116/81 10/31/19 12:45 109 H 15 10/31/19 12:31 113 H 24 10/31/19 12:30 103 H 22 126/100 10/31/19 12:27 101 H 123/88 10/31/19 12:15 98 H 15 10/31/19 12:00 108 H 16 123/88 10/31/19 11:46 130 H 20 10/31/19 11:45 113 H 20 143/99 H 10/31/19 11:40 97 H 15 100/82 10/31/19 11:38 112 H 143/80 H 10/31/19 11:31 119 H 19 10/31/19 11:15 118 H 22 10/31/19 11:08 128 H 15 10/31/19 11:07 141 H 20 143/80 H 10/31/19 11:04 141 H 182/94 H 10/31/19 11:03 141 H 18 10/31/19 10:50 126 H 21 95 10/31/19 10:48 132 H 19 150/106 H 97 10/31/19 10:28 36.3 C L 116 H 20 182/94 H 98 Laboratory Results Laboratory Results - last 24 hr 10/31/19 10/31/19 10/31/19 10:50 10:50 10:50 WBC 9.23 RBC 5.57 Hgb 17.8 Hct 50.6 MCV 90.8 MCH 32.0 MCHC 35.2 RDW Std Deviation 41.0 RDW Coeff of Louann 12.3 Plt Count 303 MPV 10.4 Immature Gran % (Auto) 0.2 Neut % (Auto) 62.8 Lymph % (Auto) 28.3 [place] % (Auto) 7.2 Eos % (Auto) 1.3 Baso % (Auto) 0.2 Immature Gran # (Auto) 0.02 Neut # (Auto) 5.80 Lymph # (Auto) 2.61 [place] # (Auto) 0.66 H Eos # (Auto) 0.12 Baso # (Auto) 0.02 PT 11.3 INR 1.1 APTT 28.2 PTT Ratio 1.0 Sodium 140 Potassium 4.3 Chloride 106 Carbon Dioxide 26 Anion Gap 8.0 BUN 15 Creatinine 1.08 Est Cr Clr Drug Dosing 115.6 Est GFR ( Amer) 102.5 Est GFR (Non-Af Amer) 88.5 BUN/Creatinine Ratio 13.6 Glucose 152 H Calcium 9.6 Magnesium 2.0 Total Bilirubin 0.7 AST 46 H ALT 85 H Alkaline Phosphatase 155 H Troponin I 0.059 H* Total Protein 8.5 H Albumin 4.3 Globulin 4.2 H Albumin/Globulin Ratio 1.0 TSH 1.870 COVID-19 PCR SARS-CoV-2 RNA (RT-PCR) 10/31/19 10/31/19 14:24 Unknown WBC RBC Hgb Hct MCV MCH MCHC RDW Std Deviation RDW Coeff of Louann Plt Count MPV Immature Gran % (Auto) Neut % (Auto) Lymph % (Auto) [place] % (Auto) Eos % (Auto) Baso % (Auto) Immature Gran # (Auto) Neut # (Auto) Lymph # (Auto) [place] # (Auto) Eos # (Auto) Baso # (Auto) PT INR APTT PTT Ratio Sodium Potassium Chloride Carbon Dioxide Anion Gap BUN Creatinine Est Cr Clr Drug Dosing Est GFR ( Amer) Est GFR (Non-Af Amer) BUN/Creatinine Ratio Glucose Calcium Magnesium Total Bilirubin AST ALT Alkaline Phosphatase Troponin I Total Protein Albumin Globulin Albumin/Globulin Ratio TSH COVID-19 PCR NEGATIVE SARS-CoV-2 RNA (RT-PCR) Cancelled Medications Administered Current Inpatient Medications Diltiazem HCl 125 mg/ Dextrose 125 mls @ 5 mls/hr IV .Q24H [facility]; Protocol Stop: 11/30/19 14:29 Last Admin: 10/31/19 14:18 Dose: 5 mg/hr, 5 mls/hr Documented by: Heparin Sodium/Dextrose (Heparin Sodium/Dextrose) 25,000 units in 500 mls @ 31 mls/hr IV .Q16H8M [facility]; Protocol Stop: 11/30/19 13:59 Last Admin: 10/31/19 15:15 Dose: 1,550 units/hr, 31 mls/hr Documented by:
[2019-10-31] MEDS ORDERED: METOPROLOL TARTRATE 100 MG TAB PO SCH (21:00)
[2019-10-31 22:14] LABS: Partial Thromboplastin Time 56.1 Seconds (21.0-31.0)
[2019-11-01] MEDS: HEPARIN SODIUM/DEXTROSE 25,000 UNITS/500 ML BAG IV SCH (05:41)
[2019-11-01 06:02] LABS: Partial Thromboplastin Ratio 2.5
[2019-11-01 06:16] LABS: Albumin Level 3.5 gm/dl (3.4-5.0); BUN Creatinine Ratio 20.6 (10-20); Est GFR (African American) 134.1; Est GFR (Non-African American) 115.7; Potassium 3.9 mmol/L (3.5-5.1)
[2019-11-01 06:18] LABS: Albumin Globulin Ratio 0.9 (0.9-2); Bilirubin,Total 0.6 mg/dl (0.2-1); Globulin 3.7 gm/dl (2.5-4.0); Total Protein 7.2 gm/dl (6.4-8.2)
[2019-11-01 06:22] LABS: Partial Thromboplastin Time 69.8 Seconds (21.0-31.0)
[2019-11-01] MEDS: dilTIAZem HCL 125 MG in DEXTROSE 5% 100 ML IV SCH (09:20)
[2019-11-01] MEDS ORDERED: SOTALOL HCL 80 MG TAB PO ONE (10:45)
[2019-11-01] MEDS: APIXABAN 5 MG TABLET PO SCH ×2 (10:58→21:48)
--- NOTE | 2019-11-01 12:08 | Hospitalist Progress Note ---
Date of Service November 01, 2019 Assessment & Plan (1) Atrial fibrillation with rapid ventricular response: In the setting of chronic beta viviana usage. IV lopressor x 3 doses in ER. Started cardizem infusion 5mg/hr with titration parameters. Pt spontaneously converted to NSR in the am of 10/31 Started heparin drip, standard protocol, transitioned to Eliquis Dr Garcia did see and has initiated Sotolol for maintainence of NSR COVID-19 PCR negative. Additionally, TSH, K and mag all wnl. (2) Abnormal LFTs: Uncertain etiology. Repeat LFTs are normal He reports that his LFTs have been normal in the past. Differential - medication (lipitor) vs fatty liver vs infectious vs other. Holding lipitor. (3) S/P aortic dissection repair: along with myomectomy for HCOM. 2015. (4) HOCM (hypertrophic obstructive cardiomyopathy): with past myomectomy. echo done in [facility] clinic a few weeks ago (5) Dyspnea: suspect due to rapid a.fib now resolved no evidence of decompensated CHF. COVID-19 PCR negative. no evidence of bronchospasm. (6) Morbid obesity with BMI of 40.0-44.9, adult: BMI 44 councelled about weight loss (7) Elevated troponin: likely myocardial demand ischemia 2nd to rapid a.fib no evidence of ACS (8) LBBB (left bundle branch block): chronic (9) DVT prophylaxis: will be on eliquis in setting of rapid a.fib care d/w Dr Garcia, [facility], he is following along Admission and Anticipated Discharge Date Admission Date: October 31, 2019 Subjective this pt feels improved and did spontaneously convert to NSR, Sotolol started in the am 10/31. Will be monitored for Qtc. Review of Systems Review of Systems: Mild distress and fatigue no headache, blurry or double vision no speech or swallowing issues no chest pain, pressure or palpitations no shortness of breath, cough or wheezes no abdominal pain, nausea or vomiting, diarrhea or constipation no dysuria, hematuria or frequency no focal joint pain or swelling no back pain, CVA tenderness or radicular pain no bruising, bleeding or rashes no focal signs of weakness or numbness or altered sensation no complaints or anxiety or depression. Physical Exam Physical Exam: The patient appeared well nourished and normally developed. Vital signs as documented. Head exam is normocephalic atraumatic no scleral icterus Neck is without JVD, thyromegaly, or carotid bruits. Lungs are clear to auscultation, no focal loss of breath sounds Cardiac exam, Rhythm is regular.. No murmurs, rubs or gallops. Abdominal exam reveals normal bowel sounds, soft non tender, no masses Extremities are nonedematous and both pedal pulses are normal. Neurologic exam is alert and oriented, no focal loss of strength or sensation Skin is without bruises or rashes Psychologically is without concerns for anxiety or depression Results & Data Results & Data ([facility]) Vital Signs (Past 12 Hours) Vital Signs Temp Pulse Pulse Resp BP Pulse Ox 11/01/19 07:33 96.8 F L 52 L 19 138/85 98 11/01/19 06:20 89 11/01/19 03:11 97.7 F 73 17 122/86 95 PG Care Time/CCT Total # of Minutes Spent Total Time Spent with Patient: Total time spent is greater than 50% in coordination of care (as documented) at patient's floor/unit and/or counseling patient: Coding Level of Care Code 49799 Subseq Hosp Care Lvl 3 Diagnoses Atrial fibrillation with rapid ventricular response I48.91 Abnormal LFTs R94.5 S/P aortic dissection repair Z98.890 HOCM (hypertrophic obstructive cardiomyopathy) I42.1 Dyspnea R06.09 Dyspnea type: other forms of dyspnea Morbid obesity with BMI of 40.0-44.9, adult E66.01; Z68.41 Elevated troponin R79.89 LBBB (left bundle branch block) I44.7 DVT prophylaxis Z29.9 (1) Dyspnea Dyspnea type: other forms of dyspnea Qualified Code(s): R06.09 - Other forms of dyspnea
--- NOTE | 2019-11-01 12:18 | Electrocardiogram Report ---
Test Reason : Blood Pressure : / mmHG Vent. Rate : 059 BPM Atrial Rate : 059 BPM P-R Int : 178 ms QRS Dur : 178 ms QT Int : 476 ms P-R-T Axes : 054 006 203 degrees QTc Int : 471 ms Sinus bradycardia Left bundle branch block Abnormal ECG When compared with ECG of 31-OCT-2019 10:43, Sinus rhythm has replaced Atrial fibrillation Vent. rate has decreased BY 79 BPM T wave inversion less evident in Lateral leads Confirmed by Murali Alvarez ([id number]) on 11/01/2019 12:18:01 PM Referred By: REFERRED SELF Confirmed By:Getachew Alvarez
[2019-11-01 12:50] LABS: Partial Thromboplastin Ratio 1.2; Partial Thromboplastin Time 32.5 Seconds (21.0-31.0)
--- NOTE | 2019-11-01 13:36 | Cardiology Progress Note ---
Date of Service November 01, 2019 Assessment & Plan (1) Atrial fibrillation with rapid ventricular response: Mr. Cheng spontaneously converted to normal sinus rhythm this a.m. Once again we discussed treatment options and he wishes to proceed with sotalol loading. Baseline QTC is a little wide at 476 ms with his underlying left bundle branch block. We will follow his QT interval very closely and maintain telemetry monitoring. Will start Eliquis 5 mg p.o. twice daily now as well and discontinue his heparin. Mr. Gastelum states that he is in agreement with the above plan. (2) S/P aortic dissection repair: Stable (3) HOCM (hypertrophic obstructive cardiomyopathy): Stable Subjective Patient seen and and examined, chart reviewed. States he feels well this a.m. He did not notice at the time of conversion but he does note that he is no longer feeling any fluttering in his chest. Denies any chest pain, shortness of breath, lightheadedness, dizziness or syncope. Telemetry reviewed: Patient converted from atrial fibrillation with controlled ventricular response to normal sinus rhythm at approximately 0730 this a.m. Review of Systems Review of Systems: All systems reviewed & are unremarkable except as noted in HPI & below Physical Exam Physical Exam: General: Awake, alert and oriented x 3. No acute distress. HEENT: Normocephalic, atraumatic. Pupils equal, round and reactive to light and accommodation. Extraocular muscles are intact. Anicteric sclera. Moist mucous membranes. Neck: No JVD. No bruit. Cardiovascular: Regular. Positive S-4. Normal S-1 and S-2. No S-3. No murmurs or rubs. Pulmonary: Clear to auscultation B/L. No rales, rhonchi or wheezing Abdomen: Bowel sounds x 4, soft. No rebound, guarding or tenderness. No organomegaly. Extremities: No clubbing, cyanosis or edema. +2 pedal pulses bilaterally. Skin: Warm and dry. Results & Data Vital Signs (Past 12 Hours) Vital Signs Temp Pulse Pulse Resp BP Pulse Ox 11/01/19 11:44 36.5 C 65 18 137/83 96 11/01/19 07:33 36 C L 52 L 19 138/85 98 11/01/19 06:20 89 11/01/19 03:11 36.5 C 73 17 122/86 95
[2019-11-01] MEDS ORDERED: SOTALOL HCL 80 MG TAB PO SCH (17:00)
--- NOTE | 2019-11-02 07:21 | Hospitalist Progress Note ---
Date of Service November 02, 2019 Assessment & Plan (1) Atrial fibrillation with rapid ventricular response: In the setting of chronic beta viviana usage. IV lopressor x 3 doses in ER. Started cardizem infusion 5mg/hr with titration parameters. Pt spontaneously converted to NSR in the am of 10/31 Started heparin drip, standard protocol, transitioned to Eliquis Dr Garcia did see and has initiated Sotolol for maintainence of NSR COVID-19 PCR negative. Additionally, TSH, K and mag all wnl. (2) Abnormal LFTs: Uncertain etiology. Repeat LFTs are normal He reports that his LFTs have been normal in the past. Differential - medication (lipitor) vs fatty liver vs infectious vs other. Holding lipitor. (3) S/P aortic dissection repair: along with myomectomy for HCOM. 2015. (4) HOCM (hypertrophic obstructive cardiomyopathy): with past myomectomy. echo done in [facility] clinic a few weeks ago (5) Dyspnea: suspect due to rapid a.fib now resolved no evidence of decompensated CHF. COVID-19 PCR negative. no evidence of bronchospasm. (6) Morbid obesity with BMI of 40.0-44.9, adult: BMI 44 councelled about weight loss (7) Elevated troponin: likely myocardial demand ischemia 2nd to rapid a.fib no evidence of ACS (8) LBBB (left bundle branch block): chronic (9) DVT prophylaxis: will be on eliquis in setting of rapid a.fib care d/w Dr Garcia, [facility], he is following along Admission and Anticipated Discharge Date Admission Date: October 31, 2019 Subjective Patient seen and and examined, chart reviewed. States he feels well this a.m. He did not notice at the time of conversion but he does note that he is no longer feeling any fluttering in his chest. Denies any chest pain, shortness of breath, lightheadedness, dizziness or syncope. Telemetry reviewed: Patient converted from atrial fibrillation with controlled ventricular response to normal sinus rhythm at approximately 0730 this a.m. Review of Systems Review of Systems: Mild distress and fatigue no headache, blurry or double vision no speech or swallowing issues no chest pain, pressure or palpitations no shortness of breath, cough or wheezes no abdominal pain, nausea or vomiting, diarrhea or constipation no dysuria, hematuria or frequency no focal joint pain or swelling no back pain, CVA tenderness or radicular pain no bruising, bleeding or rashes no focal signs of weakness or numbness or altered sensation no complaints or anxiety or depression. Physical Exam Physical Exam: The patient appeared well nourished and normally developed. Vital signs as documented. Head exam is normocephalic atraumatic no scleral icterus Neck is without JVD, thyromegaly, or carotid bruits. Lungs are clear to auscultation, no focal loss of breath sounds Cardiac exam, Rhythm is regular.. No murmurs, rubs or gallops. Abdominal exam reveals normal bowel sounds, soft non tender, no masses Extremities are nonedematous and both pedal pulses are normal. Neurologic exam is alert and oriented, no focal loss of strength or sensation Skin is without bruises or rashes Psychologically is without concerns for anxiety or depression Results & Data Results & Data ([facility]) Vital Signs (Past 12 Hours) Vital Signs Temp Pulse Pulse Pulse Resp BP Pulse Ox 11/02/19 03:58 97.5 F L 62 16 157/88 H 95 11/01/19 23:33 69 11/01/19 23:19 97.9 F 67 20 146/89 H 95 11/01/19 19:32 98.4 F 70 18 148/89 H 94 PG Care Time/CCT Total # of Minutes Spent Total Time Spent with Patient: Total time spent is greater than 50% in coordination of care (as documented) at patient's floor/unit and/or counseling patient: Coding Diagnoses Atrial fibrillation with rapid ventricular response I48.91 Abnormal LFTs R94.5 S/P aortic dissection repair Z98.890 HOCM (hypertrophic obstructive cardiomyopathy) I42.1 Dyspnea R06.09 Dyspnea type: other forms of dyspnea Morbid obesity with BMI of 40.0-44.9, adult E66.01; Z68.41 Elevated troponin R79.89 LBBB (left bundle branch block) I44.7 DVT prophylaxis Z29.9 (1) Dyspnea Dyspnea type: other forms of dyspnea Qualified Code(s): R06.09 - Other forms of dyspnea
[2019-11-02] MEDS: APIXABAN 5 MG TABLET PO SCH (10:09)
[2019-11-02] MEDS ORDERED: METOPROLOL TARTRATE 100 MG TAB PO ONE (11:38)
--- NOTE | 2019-11-02 14:22 | Cardiology Progress Note ---
Date of Service November 02, 2019 Assessment & Plan (1) Atrial fibrillation with rapid ventricular response: Unfortunately, his QTC has lengthened and I do see significant repolarization changes in the anterior lateral leads despite the underlying left bundle branch block. At this point, I am not comfortable with continuing the sotalol with concerned that it may possibly induce ventricular arrhythmias. We will restart his metoprolol and continue him on Eliquis. I will refer him to our electrophysiology colleagues as an outpatient for further evaluation. Okay to discharge to home from a cardiac standpoint. I also spoke with his mother, Roxann, to discuss the above. She states that she understands and agrees with the plan. Mr. Gastelum states that he is in agreement with the above plan. (2) S/P aortic dissection repair: Stable (3) HOCM (hypertrophic obstructive cardiomyopathy): Stable Subjective Patient seen and examined, chart reviewed. Denies any complaints overnight and specific denies any cardiac complaints of chest pain, shortness of breath, palpitations, lightheadedness, dizziness or syncope. Telemetry reviewed: Normal sinus rhythm with underlying left bundle branch block no significant ventricular ectopy or arrhythmias. EKG: Sinus rhythm with QTc interval now at 491 along with repolarization changes in the anterior lateral leads. Review of Systems Review of Systems: All systems reviewed & are unremarkable except as noted in HPI & below Physical Exam Physical Exam: General: Awake, alert and oriented x 3. No acute distress. HEENT: Normocephalic, atraumatic. Pupils equal, round and reactive to light and accommodation. Extraocular muscles are intact. Anicteric sclera. Moist mucous membranes. Neck: No JVD. No bruit. Cardiovascular: Regular. Positive S-4. Normal S-1 and S-2. No S-3. No murmurs or rubs. Pulmonary: Clear to auscultation B/L. No rales, rhonchi or wheezing Abdomen: Bowel sounds x 4, soft. No rebound, guarding or tenderness. No org anomegaly. Extremities: No clubbing, cyanosis or edema. +2 pedal pulses bilaterally. Skin: Warm and dry. Results & Data Vital Signs (Past 12 Hours) Vital Signs Temp Pulse Pulse Pulse Pulse Resp BP 11/02/19 12:29 36.9 C 67 68 18 137/79 11/02/19 12:06 36.9 C 68 18 137/79 11/02/19 07:49 36.6 C 63 18 148/88 H 11/02/19 07:44 65 11/02/19 03:58 36.4 C L 62 16 BP Pulse Ox 11/02/19 12:29 157/88 H 95 11/02/19 12:06 95 11/02/19 07:49 96 11/02/19 07:44 11/02/19 03:58 157/88 H 95
--- NOTE | 2019-11-02 15:02 | Discharge Summary ---
Date of Service November 02, 2019 Admission HPI Per Admitting Provider 34yo male with history of aortic dissection in 2015 s/p repair, followed by Trey PAGE at [facility], who presents with palpitations. Last Thursday or Thursday he had palpitations for about 1 hour. Heart was beating "harder" and irregularly. Resolved on own. Yesterday he noted some mild dyspnea on exertion when walking up the steps at his home to do laundry. This did not prevent him from going for a round of golf yesterday afternoon (golfed for 5 hours). [place] fine after golf. He did not experience shortness of breath with golf. Then, this am about 914, he experienced palpitations and tachycardia with irregular heart beating. He had mild dyspnea again. The symptoms were similar to last Thursday/Thursday. He took his BP and the systolic BP was 130s. The heart rate was ultimately elevated in the 140s and thus he came to the hospital. Denies any chest pain. On Thursday/Thursday of this weekend he had dry cough, runny nose, and dyspnea but no fevers/chills/nausea/emesis/loss of taste/smell. No myalgias (a little achy from his golf game). No recent travel. Just had office visit with Mr Huffman about 3-4 weeks ago. Had echo, blood work, etc - all was well at that time. Principal Diagnosis Atrial fibrillation with RVR with resumption of normal sinus mechanism Institution of anticoagulation Discharge Exam The patient appeared well Vital signs as documented. Cardiac exam, Rhythm is regular. Neurologic exam is alert and oriented, no focal loss of strength or sensation Skin is without bruises or rashes Psychologically is without concerns for anxiety or depression Discharge Data Allergies Allergy/AdvReac Type Severity Reaction Status Date / Time mold Allergy Unknown resp sx Verified 10/31/19 11:05 Dust Allergy Unknown resp sx Uncoded 10/31/19 11:05 Consultations 10/31/19 13:05 ED Decision to Admit Stat 10/31/19 14:03 Consult Cardiology Routine Procedures Performed Operation Date: 11/01/19 09:00 <No data on this case meets the specified criteria> Hospital Course (1) Atrial fibrillation with rapid ventricular response: In the setting of chronic beta viviana usage. IV lopressor x 3 doses in ER. Started cardizem infusion 5mg/hr with titration parameters. Pt spontaneously converted to NSR in the am of 10/31 Started heparin drip, standard protocol, transitioned to Eliquis Dr Garcia did see and has initiated Sotolol for maintenance of NSR, however sotalol seem to influence the patient's QT interval by prolonging it. Sotalol was discontinued and the decision was made to discharge the patient home on metoprolol therapy with referral to electrophysiology. Patient will be continued on Eliquis COVID-19 PCR negative. Additionally, TSH, K and mag all wnl. (2) Abnormal LFTs: Resolved resume Lipitor (3) S/P aortic dissection repair: along with myomectomy for HCOM. 2014. (4) HOCM (hypertrophic obstructive cardiomyopathy): with past myomectomy. echo done in [facility] clinic a few weeks ago (5) Dyspnea: suspect due to rapid a.fib now resolved no evidence of decompensated CHF. COVID-19 PCR negative. no evidence of bronchospasm. (6) Morbid obesity with BMI of 40.0-44.9, adult: BMI 44 councelled about weight loss (7) Elevated troponin: likely myocardial demand ischemia 2nd to rapid a.fib no evidence of ACS (8) LBBB (left bundle branch block): chronic Total Time Total Time Spent Total Time Spent (In Minutes): It required greater than 30 minutes to prepare this patient for discharge Discharge Plan Discharge Items Patient Disposition: Home - Self-Care Reason For Visit: RAPID A FIB Discharge Diagnosis: afib converted to regular rhythm Activity: Resume your previous activity Non-emergency contact: Primary Care Provider and Dust Collector Attendant Call non-emergency contact if: you have any medication questions and your symptoms worsen Follow-up/Referrals: PCP,NO [Primary Care Provider] - Diet: Regular Addtl Attending Provider Instructions: please follow up with cardiology always return if your rapid heart rate recurrs Pending Studies at Discharge: No Stand-Alone Forms: My [employer], Smoking Cessation Medications and DC Order Prescriptions: New Eliquis 5 mg Tablet 5 mg PO BID Qty: 60 RF: 0 Continued atorvastatin 40 mg tablet 40 mg PO QAM RF: 0 enalapril maleate 10 mg tablet 10 mg PO BID RF: 0 metoprolol tartrate 100 mg tablet 100 mg PO BID RF: 0 hydralazine 25 mg tablet 12.5 mg PO BID RF: 0 albuterol sulfate [Ventolin HFA] 90 mcg/actuation Hfa Aerosol Inhaler 1 inh INHALATION QID PRN (Reason: Shortness Of Breath) RF: 0 Discharge Orders: Discharge Order (Routine); Ordered 11/02/19 Ordered By: Mahesh Alejandre Admission Data Admit Date/Time: 10/31/19 14:03 Attending Provider: Mahesh Alejandre Admit Provider: Elder Hsu Primary Care Provider: PCP,NO Other Providers: Will Garcia ; Elder Hsu Other Interventions: Discharge Summary Assessment (RN) Last Done: 11/02/19 12:29 DC Date/Time DO NOT enter until pt leaves facility: 11/02/19 13:13 Coding Level of Care Code D/C Day Management >30 mins Diagnoses Atrial fibrillation with rapid ventricular response I48.91 Abnormal LFTs R94.5 S/P aortic dissection repair Z98.890 HOCM (hypertrophic obstructive cardiomyopathy) I42.1 Dyspnea R06.09 Dyspnea type: other forms of dyspnea Morbid obesity with BMI of 40.0-44.9, adult E66.01; Z68.41 Elevated troponin R79.89 LBBB (left bundle branch block) I44.7
--- NOTE | 2019-11-02 15:28 | Electrocardiogram Report ---
Test Reason : Blood Pressure : / mmHG Vent. Rate : 061 BPM Atrial Rate : 061 BPM P-R Int : 190 ms QRS Dur : 190 ms QT Int : 488 ms P-R-T Axes : 050 029 211 degrees QTc Int : 491 ms Normal sinus rhythm Left bundle branch block Abnormal ECG When compared with ECG of 01-NOV-2019 08:32, No significant change was found Confirmed by Murali Alvarez ([id number]) on 11/02/2019 3:28:21 PM Referred By: REFERRED SELF Confirmed By:Getachew Alvarez
== END 2019-11-02 13:13 | disposition home or self-care (01) | DRG 309 ==
LOC: ED 10:24 → SUATTDRO 14:03 → 2S 14:03

== ENCOUNTER 2022-04-30 06:34 | Observation (INO) ==
--- NOTE | 2022-04-29 10:14 | Anesthesiology Consultation ---
Date of Service April 29, 2022 Assessment & Plan (1) Encounter for pre-operative examination: COVID screening: Per assessment on 04/29: No known COVID-19 positive contacts or current COVID-19 related symptoms. Travel screen negative. Patient vaccinated. At surgeon discretion if preop Covid testing being done. Chart Review Chart Review: direct entry midwife initiated History Surgery Operation Date: 04/30/22 08:00 Proposed Procedures p Biventricular ICD Implant w/Anesthesia - Reema Torres DO Height/Weight Height: 5 ft 6 in Weight: 129.274 kg Allergies Allergy/AdvReac Type Severity Reaction Status Date / Time mold Allergy Intermediate CONGESTION Verified 04/29/22 08:33 Dust Allergy Intermediate CONGESTION Uncoded 04/29/22 08:33 Medications Home Medications Medication Instructions Recorded Confirmed Last Taken atorvastatin 40 mg tablet 40 mg PO QAM 10/31/19 04/29/22 10/30/19 11:00 enalapril maleate 10 mg tablet 10 mg PO BID 10/31/19 04/29/22 10/30/19 23:00 hydralazine 25 mg tablet 12.5 mg PO BID 10/31/19 04/29/22 10/30/19 23:00 metoprolol tartrate 100 mg tablet 100 mg PO BID 10/31/19 04/29/22 10/30/19 23:00 Medical Marijuana 1 dose inhalation UD PRN Anxiety 04/29/22 Unknown rivaroxaban 20 mg tablet (Xarelto) 20 mg PO PM 04/29/22 04/29/22 Unknown Past Medical History Medical History Anxiety Aortic dissection AT AGE 28 Asthma Environmental allergies History of COVID-19 11/2021>RESOLVED History of prediabetes HOCM (hypertrophic obstructive cardiomyopathy) s/p myomectomy HTN (hypertension) Hyperlipidemia LBBB (left bundle branch block) Morbid obesity PAF (paroxysmal atrial fibrillation) post-op from aortic dissection repair Past Family History Family History Mother Hypothyroidism Father Unknown family medical history Past Surgical History Surgical History H/O inguinal hernia repair as child "DOUBLE" History of anesthesia reaction "TAKES MORE MEDICATIONS FOR EFFECTIVENESS" S/P aortic dissection repair AT AGE 28 *[place], [facility] S/P tonsillectomy [place] teeth removed Social History Smoking Status: Former smoker tobacco type: cigars Do You Dip or Chew Tobacco: No Smoking End Date: BEFORE AGE 28>PRIOR OCCAS CIGAR USE Hx Alcohol Use: Yes Alcohol type: beer and wine alcohol intake frequency: a few times a month Hx Substance Use: Yes substance use type: does not use Testing Laboratory Results 04/25/22 WBC 7.83 H/H 16.0/46.0 PLATELETS 228 SODIUM 140 POTASSIUM 4.5 CHLORIDE 103 CO2 29 BUN 19 CREATININE 0.9 GLUCOSE 107 Electrocardiogram Date: 08/30/21 SB at 56bpm. RAD. LBBB. No significant change compared to 06/08/20 per nanotechnology engineering technician review. Echocardiogram Date: 07/04/20 LVEF 50-54%. No dynamic LVOT obstruction at rest. Inducible peak instantaneous LVOT gradient is 23mmhg. Moderate cLVH with asymmetric hypertrophy involving base anteroseptum. Septal motion consistent with LBBB. MV chordae are redundant with chordal systolic anterior motion. Significant MR is absent. No significant change compared to 09/26/2019 per report.
[2022-04-30] MEDS ORDERED: BUPIVACAINE 0.25% 30 ML VIAL ONE (06:54)
[2022-04-30] MEDS ORDERED: WATER, STERILE FOR INJ 10 ML VIAL ONE (06:54)
[2022-04-30] MEDS ORDERED: VANCOMYCIN HCL 1000MG/20ML VIAL ONE ×2 (06:54→16:58)
[2022-04-30] MEDS ORDERED: LIDOCAINE 1% LOCAL 20 ML VIAL ONE ×3 (06:54→18:16)
[2022-04-30] MEDS ORDERED: MIDAZOLAM HCL 1 MG/ML 2ML VIAL ONE (07:33)
[2022-04-30] MEDS ORDERED: PROPOFOL IV EMULSION 10 MG/ML 20 ML VIAL IV ONE (07:34)
[2022-04-30] MEDS ORDERED: fentaNYL citrate 100 MCG/2 ML VIAL ONE ×3 (07:35→18:16)
[2022-04-30] MEDS ORDERED: PHENYLEPHRINE HCL 10 MG/ML VIAL ONE (07:35)
[2022-04-30] MEDS ORDERED: LIDOCAINE 2% MPF LOCAL 5 ML VIAL INFIL ONE (07:36)
--- NOTE | 2022-04-30 07:41 | History & Physical Bridge Note ---
Date of Service April 30, 2022 History & Physical Bridge Note I have examined the patient, reviewed the History & Physical and in the interval since the performance of the History & Physical I have noted the following changes of clinical significance: no changes noted
--- NOTE | 2022-04-30 07:48 | History & Physical Report ---
Date of Service April 30, 2022 Assessment & Plan (1) HOCM (hypertrophic obstructive cardiomyopathy): Plan: Pt for BiV ICD; re-discussed the procedure and potential risks; pt expressed an understanding and consents signed. (2) LBBB (left bundle branch block): (3) PAF (paroxysmal atrial fibrillation): (4) Chronic heart failure: History of Present Illness Chief Complaint: fatigue and SOB Primary Care Provider: NO PCP pt presents for elective biv ICD due to HOCM, LBBB, CHF, PAF He otherwise reports his usual SOB with lightheadedness and dizziness and near syncope. Allergies Allergy/AdvReac Type Severity Reaction Status Date / Time mold Allergy Intermediate CONGESTION Verified 04/29/22 08:33 Dust Allergy Intermediate CONGESTION Uncoded 04/29/22 08:33 Home Medications Medication Instructions Recorded Confirmed Type atorvastatin 40 mg tablet 40 mg PO QAM 10/31/19 04/29/22 History enalapril maleate 10 mg tablet 10 mg PO BID 10/31/19 04/29/22 History hydralazine 25 mg tablet 12.5 mg PO BID 10/31/19 04/29/22 History metoprolol tartrate 100 mg tablet 100 mg PO BID 10/31/19 04/29/22 History Medical Marijuana 1 dose inhalation UD PRN Anxiety 04/29/22 History rivaroxaban 20 mg tablet (Xarelto) 20 mg PO PM 04/29/22 04/30/22 History Past Med/Surg History Medical History Anxiety Aortic dissection AT AGE 28 Asthma Environmental allergies History of COVID-19 11/2021>RESOLVED History of prediabetes HOCM (hypertrophic obstructive cardiomyopathy) s/p myomectomy HTN (hypertension) Hyperlipidemia LBBB (left bundle branch block) Marijuana use Morbid obesity PAF (paroxysmal atrial fibrillation) post-op from aortic dissection repair Vapes nicotine containing substance Surgical History H/O inguinal hernia repair as child "DOUBLE" History of anesthesia reaction "TAKES MORE MEDICATIONS FOR EFFECTIVENESS" S/P aortic dissection repair AT AGE 28 *[facility] S/P tonsillectomy [place] teeth removed Family History Mother Hypothyroidism Father Unknown family medical history Social History Smoking Status: Never smoker Tobacco Type: E-cigarettes / Vaping Smoking End Date: BEFORE AGE 28>PRIOR OCCAS CIGAR USE; Second Hand Exposure: No; Do You Dip or Chew Tobacco: No; Hx Alcohol Use: Yes Alcohol type: beer and wine Hx Substance Use: Yes Preferred Language: [place] Island[place] Communication Ability: Effective Data Conversion Operator Required: No Beliefs That Will Affect Care: None marital status: Single Current Living Situation: Alone Current Living Situation Comment: 1 ROOMATE current occupational status: employed 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
[2022-04-30] MEDS ORDERED: ceFAZolin 330 MG/ML 1 GM VIAL ONE ×3 (08:02→17:00)
[2022-04-30] MEDS ORDERED: HYDROmorphone INJ 1 MG/ML SYRINGE IV PRN (08:12)
[2022-04-30] MEDS ORDERED: LABETALOL HCL IV 5 MG/ML 20ML IV PRN (08:12)
[2022-04-30] MEDS ORDERED: ATROPINE SULFATE 0.1 MG/ML 10ML SYR IV PRN (08:12)
[2022-04-30] MEDS ORDERED: PHENYLEPHRINE 100MCG/ML 5ML SYR IV PRN (08:12)
[2022-04-30] MEDS ORDERED: ePHEDrine sulfate 50 MG/ML AMP IV PRN (08:12)
[2022-04-30] MEDS ORDERED: ONDANSETRON INJ 2 MG/ML 2 ML VIAL IV PRN (08:12)
[2022-04-30] MEDS ORDERED: fentaNYL citrate 100 MCG/2 ML VIAL IV PRN (08:12)
[2022-04-30] MEDS ORDERED: MEPERIDINE HCL 25 MG/ML CARP/VIAL IV PRN (08:12)
[2022-04-30] MEDS ORDERED: DEXAMETHASONE SOD INJ 4 MG/ML VIAL ONE (09:57)
[2022-04-30] MEDS ORDERED: ONDANSETRON INJ 2 MG/ML 2 ML VIAL ONE (09:57)
[2022-04-30] MEDS ORDERED: SUCCINYLCHOLINE 100MG/5ML SYR IV ONE (09:57)
--- NOTE | 2022-04-30 10:49 | Post Anesthesia Assessment ---
Date of Service April 30, 2022 Post Sedation Assessment Vital Signs Pulse Resp BP Pulse Ox O2 Del Method 04/30/22 06:58 68 15 194/126 H 98 Room Air Recovery Score Activity: Moves 4 extremities Respiration: Deep Breath/Cough Circulation: +/-20% PreAnes Value Consciousness: Fully Awake Oxygen Saturation: > 92% On Room Air Discharge Sedation Level of Care: Fast Track Phase II Post Sedation Plan On clinical assessment, the patient appears to have tolerated the sedation without complications. Patient is recovering as anticipated. Patient will continue to be monitored by nursing and may be discharged when fadia tion discharge criteria are met per below protocol. Upon Completions of procedure up to 15 minutes continue every 5 minute vital signs and the P.A.R. score; then discharge to a Phase I or Fast Track to Phase II per the following guidelines: * Discharge Patient to appropriate Phase II area if PAR is 8 or greater or return to pre- procedure baseline. The post - procedure orders will be as directed. * If PAR score is less than 8 or not return to pre-procedure baseline then patient will follow Phase I monitoring till PAR is reached for Phase II. The Phase I may be done in procedure room or may call to secure a Phase I area. * If naloxone or flumazenil are used for reversal, hold in Phase I for continued monitoring from when last reversal dose was given for a minimum of 60 minutes or longer pending the nurse and/or physician discretion of patient condition before discharge to Phase II. Please call the Sedation Physician to re-evaluate and complete post-note for discharge to Phase II area. Do NOT discharge from procedure sedation or Phase 1 until post- sedation evaluation note is complete by procedure /sedation MD Sedation Discharge Instructions to be given to the patient at discharge to home.
--- NOTE | 2022-04-30 10:50 | Operative Report ---
Post Operative Report Pre & Post Diagnosis HOCM, LBBB, CHF Operation Date: 04/30/22 08:00 <No data on this case meets the specified criteria> I identified the patient and participated in the time-out.: Yes Procedure Operation Date: 04/30/22 08:00 Actual Procedures p ICD Biventricular Implant Anesthesia - Reema Torres DO peripheral venogram Surgeon Reema Torres, Superintendent Division none Estimated Blood Loss 50 Findings Consistent with Post-Op Diagnosis Specimens none Description of Procedure see official report I attest to the content of the Intraoperative Record and any orders documented therein. Any exceptions are noted below.
--- NOTE | 2022-04-30 11:16 | Anesthesiology Progress Note ---
Date of Service April 30, 2022 Anesthesia Post Procedure Vital Signs Vital Signs: Pulse Resp BP Pulse Ox O2 Del Method 04/30/22 10:47 104 H 16 105/69 98 Room Air 04/30/22 06:58 68 15 194/126 H 98 Room Air Transfer of Care Handoff Completed per policy Notes Mental Status: alert / awake / arousable Patient Amnestic to Procedure: Yes Nausea / Vomiting: adequately controlled Pain: adequately controlled Airway Patency, RR, SpO2: stable & adequate BP & HR: stable & adequate Hydration State: stable & adequate Anesthetic Complications: no major complications apparent and Pt Satisfied with anesthetic care Notes: The patient is awake and comfortable in recovery.
[2022-04-30] MEDS ORDERED: MoRPHine SULFATE 2 MG/ML CARP ONE (11:22)
[2022-04-30] MEDS ORDERED: MoRPHine SULFATE 2 MG/ML CARP IV STA (11:23)
--- NOTE | 2022-04-30 13:10 | XRay Report ---
XR chest 1V portable CLINICAL HISTORY: s/p BiV ICD COMPARISON STUDY: Chest CT February 01, 2017. Chest radiograph October 31, 2019. FINDINGS: There is no pneumothorax following placement of a left subclavian biventricular pacer/AICD. Lead positions are suboptimally assessed given lack of lateral projection. Cardiomegaly is unchanged . There is no evidence for pulmonary edema. Blunting of the left costophrenic angle is unchanged and due to prominent epicardial fat-pad, as shown on prior CT. IMPRESSION: No pneumothorax following placement of a left biventricular pacer/AICD. ACT 112: Negative or not required by law. Electronically signed by: Natanael Calle M.D. 04/30/2022 1:08 PM
--- NOTE | 2022-04-30 14:44 | Electrocardiogram Report ---
Test Reason : Blood Pressure : / mmHG Vent. Rate : 073 BPM Atrial Rate : 076 BPM P-R Int : 000 ms QRS Dur : 204 ms QT Int : 496 ms P-R-T Axes : 000 -69 118 degrees QTc Int : 546 ms Ventricular-paced rhythm with occasional atrial-paced complexes Abnormal ECG When compared with ECG of 02-NOV-2019 06:35, Electronic ventricular pacemaker has replaced Sinus rhythm Confirmed by Chuck Razo ([id number]) on 04/30/2022 2:43:28 PM Referred By: Reema Torres Confirmed By:Chuck Razo
[2022-04-30] MEDS ORDERED: MIDAZOLAM HCL 5 MG/ML 1 ML VIAL ONE (16:59)
--- NOTE | 2022-04-30 17:14 | History & Physical Bridge Note ---
Date of Service April 30, 2022 History & Physical Bridge Note I have examined the patient, reviewed the History & Physical and in the interval since the performance of the History & Physical I have noted the following changes of clinical significance: pt on post op check was found to have his atrial lead dislodge so he is recommended a reposition of the right atrial pacing lead and then admission overnight; re-discussed the procedure and potential risks to the patient and his mother who signed the consents since pt had anesthesia earlier today
--- NOTE | 2022-04-30 17:15 | Pre Anesthesia Assessment ---
Date of Service April 30, 2022 Pre Sedation Assessment Vital Signs Pulse Resp BP Pulse Ox O2 Del Method 04/30/22 16:02 65 16 147/92 H 98 Room Air 04/30/22 14:00 60 14 106/75 94 Room Air 04/30/22 13:00 60 14 128/103 H 94 Room Air 04/30/22 12:30 70 16 116/93 93 Room Air 04/30/22 12:00 74 14 140/115 H 93 Room Air 04/30/22 11:45 70 16 145/89 H 90 Room Air 04/30/22 11:30 70 16 140/84 95 Room Air 04/30/22 11:15 71 16 150/82 H 95 Room Air 04/30/22 10:47 104 H 16 105/69 98 Room Air 04/30/22 06:58 68 15 194/126 H 98 Room Air Cardiovascular RRR, no murmur, no edema Respiratory normal respiratory effort, lungs clear to auscultation Pre-Sedation Airway Assessment Smoking Status: Never smoker Short, Thick Neck: Yes Thyromental Distance: < 3.5 Finger Breadths Oral Cavity: + WNL Mallampati Class: III ASA: ASA3 NPO Status Date of Last Intake of Fluids: 04/30/22 Time of Last Intake of Fluids: 13:00 Date of Last Intake of Solid Food: 04/29/22 Time of Last Intake of Solid Foods: 20:00 Procedure Planning Contraindications for Sedation: none Current Medications Reviewed: Yes Notes The planned sedation has been discussed with the patient. Informed Consent was obtained. I have identified the patient, determined the appropriateness of sedation and have assessed the patient immediately prior to the procedure. All medicine(s) and interventions are by my order.
--- NOTE | 2022-04-30 18:41 | Post Anesthesia Assessment ---
Date of Service April 30, 2022 Post Sedation Assessment Vital Signs Pulse Resp BP Pulse Ox O2 Del Method 04/30/22 16:02 65 16 147/92 H 98 Room Air 04/30/22 14:00 60 14 106/75 94 Room Air 04/30/22 13:00 60 14 128/103 H 94 Room Air 04/30/22 12:30 70 16 116/93 93 Room Air 04/30/22 12:00 74 14 140/115 H 93 Room Air 04/30/22 11:45 70 16 145/89 H 90 Room Air 04/30/22 11:30 70 16 140/84 95 Room Air 04/30/22 11:15 71 16 150/82 H 95 Room Air 04/30/22 10:47 104 H 16 105/69 98 Room Air 04/30/22 06:58 68 15 194/126 H 98 Room Air Recovery Score Activity: Moves 4 extremities Respiration: Deep Breath/Cough Circulation: +/-20% PreAnes Value Consciousness: Fully Awake Oxygen Saturation: > 92% On Room Air Post Anesthesia Score: 10 Discharge Sedation Level of Care: Fast Track Phase II Post Sedation Plan On clinical assessment, the patient appears to have tolerated the sedation without complications. Patient is recovering as anticipated. Patient will continue to be monitored by nursing and may be discharged when sedation discharge criteria are met per below protocol. Upon Completions of procedure up to 15 minutes continue every 5 minute vital signs and the P.A.R. score; then discharge to a Phase I or Fast Track to Phase II per the following guidelines: * Discharge Patient to appropriate Phase II area if PAR is 8 or greater or return to pre- procedure baseline. The post - procedure orders will be as directed. * If PAR score is less than 8 or not return to pre-procedure baseline then patient will follow Phase I monitoring till PAR is reached for Phase II. The Phase I may be done in procedure room or may call to secure a Phase I area. * If naloxone or flumazenil are used for reversal, hold in Phase I for continu ed monitoring from when last reversal dose was given for a minimum of 60 minutes or longer pending the nurse and/or physician discretion of patient condition before discharge to Phase II. Please call the Sedation Physician to re-evaluate and complete post-note for discharge to Phase II area. Do NOT discharge from procedure sedation or Phase 1 until post- sedation evaluation note is complete by procedure /sedation MD Sedation Discharge Instructions to be given to the patient at discharge to home.
[2022-04-30] MEDS ORDERED: oxyCODONE/ACETAMINOPHEN 5mg/325mg TAB PO PRN (18:42)
[2022-04-30] MEDS ORDERED: ACETAMINOPHEN 325 MG TAB PO PRN (18:42)
--- NOTE | 2022-04-30 18:42 | Operative Report ---
Post Operative Report Pre & Post Diagnosis Right atrial pacing lead dislodgement Operation Date: 04/30/22 08:00 <No data on this case meets the specified criteria> Operation Date: 04/30/22 15:00 <No data on this case meets the specified criteria> I identified the patient and participated in the time-out.: Yes Procedure Operation Date: 04/30/22 08:00 Actual Procedures s Venogram, Unilateral - Reema Torres DO s Insertion Single Lead Only - Reema Torres DO s Bundle of his Recording - Reema Torres DO p ICD Insertion Single or Dual - Reema Torres DO Operation Date: 04/30/22 15:00 Actual Procedures p Lead Reposition RA/RV - Reema Torres DO Surgeon Reema Torres, Credit Officer none Estimated Blood Loss 50 Findings Consistent with Post-Op Diagnosis Specimens none Description of Procedure see official report I attest to the content of the Intraoperative Record and any orders documented therein. Any exceptions are noted below.
[2022-04-30] MEDS ORDERED: FLUARIX QUADRIVALENT 0.5 ML SYR IM ONE (21:00)
[2022-04-30] MEDS: METOPROLOL TARTRATE 100 MG TAB PO SCH (21:08)
[2022-04-30] MEDS: hydrALAZINE HCL 25 MG TAB PO SCH (21:10)
[2022-04-30] MEDS: ENALAPRIL MALEATE 10 MG TAB PO SCH (21:10)
--- NOTE | 2022-05-01 08:21 | XRay Report ---
SINGLE VIEW CHEST CLINICAL HISTORY: Pacemaker lead repositioning. FINDINGS: An AP, portable, upright chest radiograph is compared to study dated 04/30/2022. The patien t is status post midline sternotomy. A 3-lead cardiac AICD is in place. Leads project over the right atrial appendage and the ventricles. The heart is enlarged. The pulmonary vasculature is noncontrast. Atelectasis is noted at both lung bases. The lungs and pleural spaces are otherwise clear. No pneumo thorax is seen. The skeletal structures appear osteopenic. The bony thorax is grossly intact. IMPRESSION: 1. A 3-lead cardiac AICD is in place as above. No pneumothorax is seen post procedure. 2. Cardiomegaly without radiographic evidence of congestive failure. 3. No airspace consolidation or pleural effusion is identified. ACT 112: Negative or not required by law. Electronically signed by: Mynor Mortensen M.D. 05/01/2022 8:20 AM
--- NOTE | 2022-05-01 08:46 | Electrocardiogram Report ---
Test Reason : Blood Pressure : / mmHG Vent. Rate : 068 BPM Atrial Rate : 068 BPM P-R Int : 156 ms QRS Dur : 124 ms QT Int : 454 ms P-R-T Axes : 049 -55 113 degrees QTc Int : 482 ms Atrial-sensed ventricular-paced rhythm Abnormal ECG When compared with ECG of 01-MAY-2022 06:20, Vent. rate has increased BY 6 BPM Confirmed by Chuck Razo ([id number]) on 05/01/2022 8:46:25 AM Referred By: Reema Torres Confirmed By:Chuck Razo
[2022-05-01] MEDS ORDERED: ATORVASTATIN 40 MG TAB PO SCH (09:00)
--- NOTE | 2022-05-01 09:11 | Discharge Summary ---
Date of Service May 01, 2022 Admission HPI Per Admitting Provider pt presents for elective biv ICD due to HOCM, LBBB, CHF, PAF He otherwise reports his usual SOB with lightheadedness and dizziness and near syncope. Admission Exam Per Admitting Provider aaox3, NAD NC/AT, EOMI Supple No JVD Nrl S1/S2, No murmur CTA b/l no w/r/r soft nt/nd no LE edema b/l skin intact no focal deficits Principal Diagnosis HOCM s/p BiV ICD Discharge Exam aaox3, NAD NC/AT, EOMI Supple No JVD Nrl S1/S2, No murmur CTA b/l no w/r/r soft nt/nd no LE edema b/l skin intact no focal deficits left pectoral incision intact, no hematoma mild ecchymosis Discharge Data Allergies Allergy/AdvReac Type Severity Reaction Status Date / Time mold Allergy Intermediate CONGESTION Verified 04/29/22 08:33 Dust Allergy Intermediate CONGESTION Uncoded 04/29/22 08:33 Procedures Performed Operation Date: 04/30/22 08:00 Actual Procedures s Venogram, Unilateral - Reema Torres DO s Insertion Single Lead Only - Reema Torres DO s Bundle of his Recording - Reema Torres DO p ICD Insertion Single or Dual - Reema Torres DO Operation Date: 04/30/22 15:00 Actual Procedures p Lead Reposition RA/RV - Reema Torres DO Ordered Studies ECG: Today 05/01/2022 -BiV Paced CXR: No PTX, leads in position Device Check: Normal lead function 04/30/22 07:15 EP Lab Images for PACS ONCE 04/30/22 17:15 EP Lab Images for PACS ONCE Hospital Course (1) HOCM (hypertrophic obstructive cardiomyopathy): pt s/p biv icd with shortly after the procedure he had atrial lead pacemaker dislodgement so needed to be brought back into reposition it. Then monitored overnight. Morning ECG, CXR and device check all good and discharged home (2) Chronic heart failure: (3) LBBB (left bundle branch block): (4) PAF (paroxysmal atrial fibrillation): Plan Pt admitted for elective BiV ICD implant; soon after the procedure his atrial pacing lead dislodged and we went back in to reposition the atrial lead. Pt was monitored overnight , repeat CXR and ECG looked good and Device check looked good and discharged home. Total Time Total Time Spent Total Time Spent (In Minutes): 20 Discharge Plan Discharge Items Patient Disposition: Home - Self-Care Reason For Visit: Non-Ischemic Cardiomyopathy, LBBB Discharge Diagnosis: HOCM, LBBB, CHF Condition on Discharge: Good Activity: As commented below Activity Comment: do not raise the left elbow over the left shoulder for 1 month Lifting: No more than 10 pounds Lifting Comment: do not lift more than 10 pounds with the left arm for 2 weeks Bathing: Keep incision dry Bathing Comment: keep dressing on & dry until wound check next week Sexual Activity: After two weeks Driving/Machine Use: Resume 1 day after discharge Non-emergency contact: [employer] Department Supervisor Call non-emergency contact if: you have any medication questions Follow-up/Referrals: [id number] [Primary Care Provider] - Diet: Heart Healthy Addtl Attending Provider Instructions: Device and wound check as scheduled next week at [facility] cardiology If you develop severe Shortness of breath then please go to the ED Pending Studies at Discharge: No Stand-Alone Forms: My [facility] Medications and DC Order Prescriptions: Continued atorvastatin 40 mg tablet 40 mg PO QAM enalapril maleate 10 mg tablet 10 mg PO BID metoprolol tartrate 100 mg tablet 100 mg PO BID hydralazine 25 mg tablet 12.5 mg PO BID Xarelto 20 mg Tablet 20 mg PO PM Rx Instructions: must administer with evening meal Medical Marijuana 1 dose inhalation UD PRN (Reason: Anxiety) Label Comments: INH AND ORAL USE Discharge Orders: Discharge Order (Routine); Ordered 05/01/22 Ordered By: Reema Torres Admission Data Admit Date/Time: 04/30/22 16:22 Attending Provider: Reema Torres Admit Provider: Reema Torres Primary Care Provider: PCPNO
[2022-05-01] MEDS: hydrALAZINE HCL 25 MG TAB PO SCH (09:49)
[2022-05-01] MEDS: ENALAPRIL MALEATE 10 MG TAB PO SCH (09:49)
[2022-05-01] MEDS: METOPROLOL TARTRATE 100 MG TAB PO SCH (09:49)
[2022-05-01] MEDS ORDERED: RIVAROXABAN 20 MG TAB PO SCH (21:00)
--- NOTE | 2022-05-13 09:57 | Operative Report (OR) ---
DATE OF PROCEDURE: 04/30/2022. PREOPERATIVE DIAGNOSES: Left bundle branch block, hypertrophic obstructive cardiomyopathy, paroxysmal atrial fibrillation, sinus bradycardia. POSTOPERATIVE DIAGNOSES: Left bundle branch block, hypertrophic obstructive cardiomyopathy, paroxysmal atrial fibrillation, sinus bradycardia. PROCEDURE: Biventricular rate responsive implantable cardiac defibrillator under fluoroscopic guidance along with peripheral venogram. SURGEON: Reema Torres DO. ASSISTANTS: None. ANESTHESIA: Monitored anesthetic care administered via anesthesiology. They gave general anesthesia. Start time was 8:24, end time 10:47. Please refer to anesthesiology notes for complete details. ESTIMATED BLOOD LOSS: 50 mL. INTRAVENOUS FLUIDS: 300 mL. CONTRAST: 15 mL. ANTIBIOTICS: 3 grams of Ancef. COMPLICATIONS: None. CONDITION: Stable. URINE OUTPUT: Not applicable. SPECIMENS: None. FINDINGS: See below. DRAINS: None. INDICATIONS: This is a 36-year-old gentleman with a past medical history for paroxysmal atrial fibrillation diagnosed in 10/2021. He had an emergent type 1 aortic dissection repair in 05/2014. Septal myomectomy, hypertrophic obstructive cardiomyopathy and aortic root reconstitution with reimplantation of the coronaries in 05/2014 with a cardiac MRI that shows a high percent of scar burden, hypertension, chronic tobacco use, morbid obesity, obstructive sleep apnea, left bundle branch block, sinus bradycardia. Due to his hypertrophic cardiomyopathy, left bundle and sinus bradycardia, he is recommended a BiV ICD. CONSENT: Consent was obtained prior to the patient going into the electrophysiology lab. The patient was informed of the risks, benefits, and alternatives to the procedure. Risks include, but not limited to, sudden cardiac , cardiac arrhythmia, cerebrovascular accident, myocardial infarction, injury to the blood vessels, chamber of the heart and lung, bleeding and infection. The patient understood these risks and agreed to the procedure as planned. Informed consent was obtained. DESCRIPTION OF PROCEDURE: The patient was brought into the electrophysiology lab in a fasting state. He was connected to continuous cardiac monitoring. A time-out was performed to ensure patient identity and procedure correctly. He was prepped and draped over the left infraclavicular space in normal surgical standard fashion. General anesthesia was used throughout the procedure for patient's comfort level. [place] precautions were maintained throughout the procedure. He received prophylactic antibiotics prior to incision. 10 mL of 1% lidocaine-bupivacaine mixture were given in the left deltopectoral groove. An incision was made in the left deltopectoral groove. Blunt dissection was performed down to the pectoralis muscle. Then, using blunt dissection over the pectoralis muscle, a defibrillator pocket was created. Then, a peripheral venogram was performed to identify the axillary vein. Venous axillary access was obtained through a needlestick on 2 separate occasions. Through the more lateral stick, a 7-[place]zerbaijani sheath was inserted over the guidewire. The dilator was removed and a second guidewire was inserted through the sheath to allow for retained venous access. Sheath was removed and then a 9.5-Azerbaijani sheath was inserted over one of the wires in the more lateral stick. Then, the guidewire and dilator removed. Then, the right ventricular defibrillator lead was advanced into right ventricle, positioned in the right ventricular apex under fluoroscopic guidance. There was adequate pacing and sensing thresholds and no diaphragmatic stimulation with high output pacing. The 9.5-[place]zerbaijani sheath was peeled away and the lead was fixated to pectoralis muscle using 0 silk suture. Through the more medial stick, a 7-[place]zerbaijani sheath was inserted over the guidewire. The guidewire and dilator removed. The His C315 sheath was advanced through the 7-Azerbaijani sheath over a Glidewire into the right ventricle. The Glidewire and dilator removed, and the pacing lead was advanced through the His C315 sheath, and I attempted to do intracardiac electrogram His bundle recordings. However, I never saw an exact His, but I kind of had an idea of where one was based on my A:V ratios. I then marked where I thought the His was on my fluoroscopy screens when the camera was in LIN 30 and came down about 2 cm from this in a line that would extend out to the apex and started trying to position my left bundle lead. I came on pacing and eventually had an area where I thought was a decent W paced pattern in V1. I then moved the camera to SULMA 30 and started giving a series of clockwise turns to screw the lead into the septum; however, it was not looking the greatest. I ended up swapping out the His C315 sheath for an S10 sheath to be a little bit lower on the septum. This worked well. I kept giving a series of clockwise turns to screw the lead into the septum pausing every once in a while until I formed a nice R prime in V1. I gave contrast through the sheath to see how I was well into the septum. I then slit the His S10 sheath under fluoroscopic guidance, leaving the 7-Azerbaijani sheath in while I positioned the right atrial lead. A 7-Azerbaijani sheath was inserted over the retained guidewire in the more lateral stick. The guidewire and dilator removed, and the right atrial lead was advanced into right atrium and positioned in the right atrial appendage area as I did not think he had one anymore under fluoroscopic guidance. There was adequate pacing and sensing thresholds and no diaphragmatic stimulation with high output pacing. The 7-Azerbaijani sheath was peeled away and the lead was fixated to pectoralis muscle using 0 silk suture. The 7-Azerbaijani sheath around the left bundle lead was then peeled away and the lead was fixated to pectoralis muscle using 0 silk suture. Then, the pocket was flushed with copious amounts of vancomycin and saline wash and inspected for hemostasis. The pulse generator was then attached to all the leads making sure the pins were in appropriate position, passed set screws, and set screws were all tightened. Then, the device was placed in the antibiotic pouch followed then by being placed in the pocket, making sure the leads were lying flat beneath the device. The incision was closed in a 3-layer fashion using 2-0 Vicryl interrupted suture followed by 3-0 Vicryl interrupted suture, followed by 4-0 Monocryl running stitch and Dermabond was applied followed by Telfa and Tegaderm dressing. EQUIPMENT: 1. Pulse generator is a Medtronic Claria MRI GREENSKEEPER HEAD-D SureScan [id number], serial number [id number]. 2. TYRX pouch, reference [id number], lot number [id number]. 3. Right atrial lead, Medtronic 5076-52 cm, serial number [id number]. 4. Right ventricular lead, Medtronic 6935M-62 cm, serial number [id number]. 5. Left bundle lead, Medtronic 3830-69 cm, serial number [id number]. INTRAPROCEDURAL FINDINGS: 1. Right atrial lead, P waves 1 millivolt, impedance 571 ohms, threshold 0.9 volts at 0.5 milliseconds. 2. Right ventricular lead, R waves 15.3 millivolts, impedance 606 ohms, threshold 0.4 volts at 0.5 milliseconds. 3. Left bundle lead, R waves 16 millivolts, impedance 1050 ohms, threshold 0.8 volts at 0.5 milliseconds. FINAL MEASUREMENTS THROUGH THE DEVICE: 1. Right atrial lead, P waves 3.5 millivolts, impedance 560 ohms, threshold 1.25 volts at 0.4 milliseconds. 2. Right ventricular lead, R waves 18.5 millivolts, impedance 600 ohms, threshold 0.5 volts at 0.4 milliseconds. 3. Left bundle lead, impedance 900 ohms, threshold 0.5 volts at 0.4 milliseconds. FINAL PARAMETERS: DDDR 70/150. Right atrial amplitude 3.5 volts, pulse width 0.4 milliseconds, sensitivity 0.3 millivolts. Right ventricular amplitude 3.5 volts, pulse width 0.4 milliseconds, sensitivity 0.45 millivolts. Left bundle lead amplitude 4 volts and pulse width 0.4 milliseconds. VT monitor zone 160 beats per minute for 32 beats and a VF zone at 214 beats per minute for 30 beats. IMPRESSION: Successful biventricular rate responsive implantable cardiac defibrillator under fluoroscopic guidance with a peripheral venogram secondary to hypertrophic obstructive cardiomyopathy, left bundle branch block, sinus bradycardia, heart failure. PLAN: Monitor the patient post-procedure. A 12-lead ECG, chest x-ray, recheck the device in a few hours. He cannot lift the left elbow or left shoulder for 1 month. He cannot lift more than 10 pounds with the left arm for 2 weeks. He is to keep the dressing on and dry until his wound check next week. Job ID: [id number] [facility]
--- NOTE | 2022-05-13 10:47 | Operative Report (OR) ---
DATE OF PROCEDURE: 04/30/2022. PREOPERATIVE DIAGNOSIS: Right atrial pacemaker lead dislodgement. POSTOPERATIVE DIAGNOSIS: Right atrial pacemaker lead dislodgement. PROCEDURE: Right atrial lead repositioning under fluoroscopic guidance. SURGEON: Reema Torres DO. PHARMACY INNOVATION ASSISTANT: None. ANESTHESIA: Monitored conscious sedation administered under my supervision by Jessica Hahn. Start ken e 5:31, end time 6:43. Total of 5 mg of Versed, 125 mcg of fentanyl. INTRAVENOUS FLUIDS: 123 mL. ANTIBIOTICS: 3 grams of Ancef. BLOOD LOSS: 15 mL. COMPLICATIONS: None. CONDITION: Stable. URINE OUTPUT: None. SPECIMENS: None. FINDINGS: See below. DRAINS: None. INDICATIONS: This is a 36-year-old gentleman with a past medical history for paroxysmal atrial fibri llation. An emergent type 1 aortic dissection repair in May 2014 along with a septal myomectomy and aortic reconstruction with reimplantation of the coronaries, hypertension, chronic tobacco use, m orbid obesity, obstructive sleep apnea, left bundle branch block, sinus bradycardia. He underwent a BiV ICD earlier this morning. On his postop check, it was found that on his device that his right at rial lead had dislodged and he was recommended a lead revision repositioning. CONSENT: Consent was obtained prior to the patient going back into the electrophysiology lab. Since the patient did have sedation earlier today, although he was awakened, understood everything of the risks and benefits, his mom signed the consent on his behalf. Risks of the procedure include, but no t limited to, sudden cardiac , cardiac arrhythmias, cerebrovascular accident, myocardial infarct ion, injury to the blood vessels, chamber of the heart, bleeding and infection. The patient's mom ex pressed understanding and signed the consent on his behalf. DESCRIPTION OF PROCEDURE: The patient was brought into the electrophysiology lab in a fasting state. He was connected to continuous cardiac monitoring. A time-out was performed to ensure patient iden tity and procedure correctly. He was prepped and draped over the left infraclavicular space in karla l surgical standard fashion. Monitored conscious sedation was given throughout the procedure for pat ient's comfort level. [place] precautions were maintained throughout the procedure. He received p rophylactic antibiotics prior to incision. A 20 mL of 1% lidocaine lidocaine-bupivacaine mixture were given over the prior surgical incision. T hen, the incision was opened back up using [place] and the suture layers. The sutures from the three cl osing layers were removed. Then, the device was taken out of the pocket and wrapped in the antibioti c gauze pad and then the right atrial lead was removed from the device and a stylet was placed down a t the suture. The 0 silk suture that secured the device down to the pectoralis muscle were removed. The screw was then retracted and the lead was repositioned using a bach formed J stylet more on the lateral wall. I did initially try to put it more in the septal area, but it dislodged again. So, I put it on the lateral wall. There was adequate pacing and sensing thresholds and no diaphragmatic st imulation with high output pacing. The lead was then fixated to pectoralis muscle using 0 silk sutur e and the pocket was flushed with copious amounts of vancomycin and saline wash. Then, it was reatta ched to the device, making sure the pins were in appropriate position, passed set screws, and set scr ews were tightened. Then, the device was put in a new antibiotic pouch and then placed in the pocket , making sure the leads were lying flat beneath the device. The incision was then closed in a 3-laye r fashion using 2-0 Vicryl interrupted suture, 3-0 Vicryl interrupted suture, followed by 4-0 Monocry l running stitch and Dermabond was applied followed by Telfa and Tegaderm dressing. EQUIPMENT: 1. Medtronic Claria MRI OPTIMIZATION ENGINEER-D SureScan [id number], serial number [id number]. 2. Right atrial lead, Medtronic 5076-52 cm, serial number [id number]. 3. Right ventricular lead, Medtronic 6935M-62 cm, serial number [id number]. 4. Left bundle lead, 3830-69 cm, serial number [id number]. 5. The TYRX pouch, reference [id number], lot number [id number]. INTRAOPERATIVE FINDINGS: The right atrial lead, P waves 4.8 millivolts, impedance 475 ohms, threshol d 0.75 volts at 0.4 milliseconds. FINAL MEASUREMENTS THROUGH THE DEVICE: 1. Right atrial lead, P waves 5.1 millivolts, impedance 450 ohms, threshold 0.5 volts at 0.4 millise conds. 2. Right ventricular lead, R waves 20 millivolts, threshold 0.5 volts at 0.4 milliseconds, impedance 600 ohms. 3. Left bundle lead, impedance 513 ohms, threshold 0.75 volts at 0.4 milliseconds. FINAL PARAMETERS: DDD 60/150. Right atrial amplitude 3.5 volts, pulse width 0.4 milliseconds, sensi tivity 0.3 millivolts. Right ventricular amplitude 3.5 volts, pulse width 0.4 milliseconds, sensitiv ity 0.6 millivolts. Left bundle lead amplitude 4 volts, pulse width 0.4 milliseconds. A VT monitor zone 162 beats per minute for 32 beats, and a VF zone at 214 beats per minute for 30 beats. IMPRESSION: Successful right atrial pacemaker lead repositioning secondary to dislodgement. PLAN: Monitor the patient overnight, 12-lead ECG, chest x-ray in the morning. He cannot lift the le ft elbow or left shoulder for 1 month. He cannot lift more than 10 pounds with left arm for 2 weeks. He is to keep the dressing on and dry until his wound check next week. Job ID: [id number]
== END 2022-05-01 10:38 | disposition home or self-care (01) ==
LOC: 4W 06:34 → EP 06:34
PROC: EPB.ICD (2022-04-30 08:00)

== ENCOUNTER 2022-05-08 00:18 | Observation (INO) ==
[2022-05-08] MEDS ORDERED: SODIUM CHLORIDE 0.9% 500 ML IV ONE (01:03)
--- NOTE | 2022-05-08 01:03 | Emergency Department Note ---
History of Present Illness General Chief complaint: Illness Stated complaint: JUST HAD HEART SURGERY, SWEATING Time Seen by Provider: 05/08/22 00:35 History of Present Illness This is a 36-year-old male with a history of hypertrophic obstructive cardiomyopathy, left bundle branch block, paroxysmal atrial fibrillation, chronic heart failure, status post biventricular ICD placement 1 week ago, history of aortic dissection at age 28, hypertension, anxiety, who presents with a runny nose and mild cough that started 2 days ago, developed a fever as high as 100.6 this evening. Several hours later, he broke into a sweat which caused him concern because it reminded him of when he had his aortic dissection. He also noticed that his heart rate was around 100 which also caused him concern given his pacemaker. BiV ICD was placed at this facility 1 week ago, complicated because the atrial lead disconnected and he had to be replaced. Patient was due for a recheck 2 days from now. He also offers that his mother recently had bronchitis and was around him. He endorses a little bit of nausea but has had no vomiting. Has a little bit of soreness over the left side of his chest from where the incision was placed for the implant, otherwise denies any chest pain or shortness of breath above his baseline. Denies any abdominal pain, leg swelling, leg pain. Has felt a little lightheaded over the past few days but this is not necessarily different from his baseline. Home Medications Medication Instructions Recorded Confirmed Type atorvastatin 40 mg tablet 40 mg PO QAM 10/31/19 05/08/22 History enalapril maleate 10 mg tablet 10 mg PO BID 10/31/19 05/08/22 History hydralazine 25 mg tablet 12.5 mg PO BID 10/31/19 05/08/22 History metoprolol tartrate 100 mg tablet 100 mg PO BID 10/31/19 05/08/22 History Medical Marijuana 1 dose inhalation UD PRN Anxiety 04/29/22 05/08/22 History rivaroxaban 20 mg tablet (Xarelto) 20 mg PO PM 04/29/22 05/08/22 History oxycodone-acetaminophen 5 mg-325 1 tab PO Q4 PRN Moderate Pain 05/08/22 05/08/22 History mg tablet (Scale Score 5-6) Allergies Allergy/AdvReac Type Severity Reaction Status Date / Time mold Allergy Intermediate CONGESTION Verified 05/08/22 00:42 Dust Allergy Intermediate CONGESTION Uncoded 05/08/22 00:42 Past Med/Surg History Medical History Anxiety Aortic dissection AT AGE 28 Asthma Environmental allergies History of COVID-19 11/2021>RESOLVED History of prediabetes HOCM (hypertrophic obstructive cardiomyopathy) s/p myomectomy HTN (hypertension) Hyperlipidemia LBBB (left bundle branch block) Marijuana use Morbid obesity PAF (paroxysmal atrial fibrillation) post-op from aortic dissection repair Vapes nicotine containing substance Surgical History H/O inguinal hernia repair as child "DOUBLE" History of anesthesia reaction "TAKES MORE MEDICATIONS FOR EFFECTIVENESS" S/P aortic dissection repair AT AGE 28 *GENO BRANDT S/P tonsillectomy [place] teeth removed Family History Mother Hypothyroidism Father Unknown family medical history Social History Smoking Status: Former smoker Tobacco Type: E-cigarettes / Vaping Second Hand Exposure: No; Hx Alcohol Use: Yes Alcohol type: beer and wine Hx Substance Use: Yes Preferred Language: Belarusian Communication Ability: Effective Monotyper Required: No Beliefs That Will Affect Care: None marital status: Single Current Living Situation: Alone Current Living Situation Comment: 1 ROOMATE current occupational status: employed 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 and A total of 10 systems reviewed and were otherwise negative Physical Exam Vital Signs Vital Signs - 24 hr 05/08/22 00:20 05/08/22 02:13 05/08/22 02:30 Temperature 98.2 F Temperature Source Temporal Artery Scan Pulse Rate 98 H 83 82 Pulse Rate from SpO2 Sensor 82 Respiratory Rate 16 21 18 Respiratory Effort / Characteristics Non-Labored Spontaneous Respiratory Depth Normal Blood Pressure 168/105 H 135/87 Blood Pressure Mean 126 103 Pulse Oximetry 95 94 Oxygen Delivery Method Room Air Room Air Sepsis Recent Fever Within 48 Hours No Sepsis New/Unexplained Change in Mental Status No Sepsis Action Taken by Nursing No Action Required 05/08/22 03:00 05/08/22 03:35 Temperature Temperature Source Pulse Rate 75 76 Pulse Rate from SpO2 Sensor 76 Respiratory Rate 14 18 Respiratory Effort / Characteristics Respiratory Depth Blood Pressure Blood Pressure Mean Pulse Oximetry 96 95 Oxygen Delivery Method Room Air Sepsis Recent Fever Within 48 Hours Sepsis New/Unexplained Change in Mental Status Sepsis Action Taken by Nursing CONSTITUTIONAL: Well developed, well nourished, sitting upright on stretcher, conversational, somewhat anxious appearing, nontoxic. HEAD: Normocephalic, atraumatic. EYES: conjunctivae normal, extraocular muscles intact. ENMT: External ears normal. Nose with normal external appearance, minimal congestion is appreciated. Oral mucous membranes moist. Oropharynx normal with no erythema or exudates. NECK: Full active range of motion. LYMPHATIC: No cervical adenopathy RESPIRATORY: Breathing unlabored and symmetric. Lungs clear to auscultation bilaterally. No wheeze, rales, or rhonchi. Mild cough is present. CARDIOVASCULAR: Regular rate and rhythm. No murmurs, rubs, or gallops. CHEST: Surgical incision of her left anterior upper chest wall covered with Steri-Strips. There is no discharge or surrounding erythema, no fluctuance, no significant tenderness. ABDOMEN: Normal bowel sounds. Soft, nontender, no peritonitis. No pulsatile masses. MUSCULOSKELETAL: Moves all extremities at all joints without pain or difficulty. No cyanosis or edema. Back with full range of motion. SKIN: Cool and clammy. NEUROLOGIC: Awake, alert, oriented. Gaze is conjugate. Face symmetric, speech normal. Moves head and all four extremities spontaneously. Sensation and strength grossly intact. PSYCHIATRIC: Slightly anxious, otherwise appropriate. Course Administered Medications Discontinued Medications Sodium Chloride (Nss) 500 mls @ 999 mls/hr IV .Q31M ONE Stop: 05/08/22 01:33 Last Infusion: 05/08/22 03:54 Dose: 0 mls/hr Documented By: Admin: 05/08/22 02:30 Dose: 999 mls/hr Documented By: YANET Medical Decision Making Differential Diagnosis Viral upper respiratory infection, pneumonia, postoperative infection, myocarditis, pericarditis, pericardial effusion, pacemaker malfunction, arrhythmia, MS, cardiac ischemia, PE, CHF exacerbation, dissection, among other pathology Medical Records Attestation: I reviewed the patient's medical records. (Reviewed cardiology n otes from recent admission for BiV ICD placement) Laboratory Data Result diagrams: 05/08/22 01:30 05/08/22 01:30 Lab Results 12/05/08/22 05/08/22 Range/Units 01:20 01:30 01:30 WBC 11.84 H (4.8-10.8) K/ul RBC 5.41 (4.63-6.08) M/uL Hgb 17.1 (14.0-18.0) g/dl Hct 48.6 (40.1-51.0) % MCV 89.8 (80.0-100.0) fL MCH 31.6 (25.0-34.0) pg MCHC 35.2 (32.0-36.0) g/dL RDW Std Deviation 39.3 (36.4-46.3) fL RDW Coeff of Louann 12.0 (11.5-14.5) % Plt Count 215 (130-400) K/uL MPV 10.0 (9.4-12.4) fL Immature Gran % (Auto) 0.4 % Neut % (Auto) 79.5 % Lymph % (Auto) 10.4 % [place] % (Auto) 7.3 % Eos % (Auto) 2.0 % Baso % (Auto) 0.4 % Neut # (Auto) 9.40 H (1.4-6.5) K/uL Lymph # (Auto) 1.23 (1.2-3.4) K/uL [place] # (Auto) 0.87 H (0.24-0.82) K/uL Eos # (Auto) 0.24 (0-0.50) K/uL Baso # (Auto) 0.05 (0-0.2) K/uL Immature Gran # (Auto) 0.05 H (0.00-0.02) K/uL Sodium 137 (136-145) mmol/L Potassium 4.4 (3.5-5.1) mmol/L Chloride 103 (98-107) mmol/L Carbon Dioxide 27 (21-32) mmol/L Anion Gap 7 (3-11) BUN 15 (6-23) mg/dl Creatinine 0.95 (0.6-1.4) mg/dl Est Cr Clr Drug Dosing 135.3 ml/min Est GFR ( Amer) 118.0 ml/min Est GFR (Non-Af Amer) 101.9 ml/min BUN/Creatinine Ratio 15.8 (10-20) Glucose 146 H (70-99(Fasting)) mg/dl Lactate (0.4-2.0) mmol/L Calcium 9.9 (8.5-10.1) mg/dl Total Bilirubin 0.8 (0.2-1.0) mg/dl AST 46 H (13-39) U/L ALT 96 H (7-52) U/L Alkaline Phosphatase 119 H (34-104) U/L Troponin I High Sens 49.4 H (0-20) pg/ml Total Protein 8.1 (6.0-8.3) gm/dl Albumin 4.8 (3.4-5.0) gm/dl Globulin 3.3 (2.5-4.0) gm/dl Albumin/Globulin Ratio 1.5 (0.9-2) Adenovirus (PCR) Not Detected (NotDetected) B. pertussis DNA (PCR) Not Detected (NotDetected) B.parapertussis DNA PCR Not Detected (NotDetected) C. pneumoniae DNA (PCR) Not Detected (NotDetected) Coronavirus OC43 (PCR) Not Detected (NotDetected) Coronavirus HKU1 (PCR) Not Detected (NotDetected) Coronavirus 229E (PCR) Not Detected (NotDetected) SARS-CoV-2 (PCR) Not Detected (NotDetected) Coronavirus NL63 (PCR) Not Detected (NotDetected) Human Metapneumovir PCR Not Detected (NotDetected) Influenza Type A (PCR) Not Detected (NotDetected) Influenza Type B (PCR) Not Detected (NotDetected) M. pneumoniae (PCR) Not Detected (NotDetected) Parainfluenza 1 (PCR) Not Detected (NotDetected) Parainfluenza 2 (PCR) Not Detected (NotDetected) Parainfluenza 3 (PCR) Not Detected (NotDetected) Parainfluenza 4 (PCR) Not Detected (NotDetected) RSV (PCR) Not Detected (NotDetected) Entero/Rhino (PCR) DETECTED A* (NotDetected) 05/08/22 Range/Units 02:24 WBC (4.8-10.8) K/ul RBC (4.63-6.08) M/uL Hgb (14.0-18.0) g/dl Hct (40.1-51.0) % MCV (80.0-100.0) fL MCH (25.0-34.0) pg MCHC (32.0-36.0) g/dL RDW Std Deviation (36.4-46.3) fL RDW Coeff of Louann (11.5-14.5) % Plt Count (130-400) K/uL MPV (9.4-12.4) fL Immature Gran % (Auto) % Neut % (Auto) % Lymph % (Auto) % [place] % (Auto) % Eos % (Auto) % Baso % (Auto) % Neut # (Auto) (1.4-6.5) K/uL Lymph # (Auto) (1.2-3.4) K/uL [place] # (Auto) (0.24-0.82) K/uL Eos # (Auto) (0-0.50) K/uL Baso # (Auto) (0-0.2) K/uL Immature Gran # (Auto) (0.00-0.02) K/uL Sodium (136-145) mmol/L Potassium (3.5-5.1) mmol/L Chloride (98-107) mmol/L Carbon Dioxide (21-32) mmol/L Anion Gap (3-11) BUN (6-23) mg/dl Creatinine (0.6-1.4) mg/dl Est Cr Clr Drug Dosing ml/min Est GFR ( Amer) ml/min Est GFR (Non-Af Amer) ml/min BUN/Creatinine Ratio (10-20) Glucose (70-99(Fasting)) mg/dl Lactate 1.0 (0.4-2.0) mmol/L Calcium (8.5-10.1) mg/dl Total Bilirubin (0.2-1.0) mg/dl AST (13-39) U/L ALT (7-52) U/L Alkaline Phosphatase (34-104) U/L Troponin I High Sens (0-20) pg/ml Total Protein (6.0-8.3) gm/dl Albumin (3.4-5.0) gm/dl Globulin (2.5-4.0) gm/dl Albumin/Globulin Ratio (0.9-2) Adenovirus (PCR) (NotDetected) B. pertussis DNA (PCR) (NotDetected) B.parapertussis DNA PCR (NotDetected) C. pneumoniae DNA (PCR) (NotDetected) Coronavirus OC43 (PCR) (NotDetected) Coronavirus HKU1 (PCR) (NotDetected) Coronavirus 229E (PCR) (NotDetected) SARS-CoV-2 (PCR) (NotDetected) Coronavirus NL63 (PCR) (NotDetected) Human Metapneumovir PCR (NotDetected) Influenza Type A (PCR) (NotDetected) Influenza Type B (PCR) (NotDetected) M. pneumoniae (PCR) (NotDetected) Parainfluenza 1 (PCR) (NotDetected) Parainfluenza 2 (PCR) (NotDetected) Parainfluenza 3 (PCR) (NotDetected) Parainfluenza 4 (PCR) (NotDetected) RSV (PCR) (NotDetected) Entero/Rhino (PCR) (NotDetected) Imaging Data My Impression: Chest x-ray 1 view: Pacemaker in place. 2 leads identified in bilateral ventricles. No significant widened mediastinum. No consolidation. Pending final radiology read ECG Data Attestation: I personally reviewed and interpreted this ECG as follows: (Atrial sensed ventricular paced rhythm rate of 86. Compared to ECG from 05/01/2022, no significant change was identified) MDM Narrative 36-year-old male with a complex cardiac history as described above, recent BiV ICD placement 1 week ago presents with 2 days of a runny nose and mild cough, developed fever of 100.6 this evening, and then several hours later developed diaphoresis. He also notes tachycardia with a heart rate around 100. On exam he is overall relatively well-appearing, slightly anxious, certainly nontoxic. He is cool and clammy. I rechecked his temperature and it was 98.2 orally. This certainly could be related to his fever breaking. Symptoms very well could be related to a viral process. Case was discussed with ED attending Dr. Aguilar. Given recent operative procedure and high risk cardiac patient, EKG, chest x-ray, labs were obtained, gentle IV fluids administered conscious of history of heart failure. Blood cultures obtained. An order was placed for continuous cardiac monitoring and at time of visualization demonstrates a paced regular rhythm in the 80s. ECG unchanged from 1 week ago. Labs show mild leukocytosis at 11.8. No anemia. Glucose mildly elevated at 146, his baseline. Troponin is elevated at 49.4, possibly baseline though most recent comparison was from 2019, not high-sensitivity troponin. Lactate is normal. BNP pending. Upper respiratory panel is positive for rhinovirus, certainly could be the source of his symptoms. Given recent cardiology procedure requiring repeat lead placement, in setting of elevated troponin, did not feel comfortable discharging patient home. Patient will be admitted for further evaluation, trend troponins, may require echo and cardiology consult. Impression & Plan Elevated troponin, Rhinovirus Discharge Plan Visit Data Chief Complaint: Illness Stated Complaint: JUST HAD HEART SURGERY, SWEATING ED Provider: Julisa Aguilar ED Midlevel Provider: Jean Carlos Bustamante. Discharge Problem: Elevated troponin, Rhinovirus Patient Disposition: Admitted As Inpatient Condition: Good Forms Stand Alone Forms: My [facility] Prescriptions Prescriptions: No Action atorvastatin 40 mg tablet 40 mg PO QAM enalapril maleate 10 mg tablet 10 mg PO BID metoprolol tartrate 100 mg tablet 100 mg PO BID hydralazine 25 mg tablet 12.5 mg PO BID Xarelto 20 mg Tablet 20 mg PO PM Rx Instructions: must administer with evening meal Medical Marijuana 1 dose inhalation UD PRN (Reason: Anxiety) Label Comments: INH AND ORAL USE oxycodone-acetaminophen 5-325 mg tablet 1 tab PO Q4 PRN (Reason: Moderate Pain (Scale Score 5-6)) Referrals Referrals: PCP,NO [Primary Care Provider] -
[2022-05-08 02:06] LABS: Basophils # (auto) 0.05 K/uL (0-0.2); Basophils % (auto) 0.4 %; Eosinophils # (auto) 0.24 K/uL (0-0.50); Hematocrit (blood only) 48.6 % (40.1-51.0); Hemoglobin 17.1 g/dl (14.0-18.0); Immature Granulocytes # (auto) 0.05 K/uL (0.00-0.02); Immature Granulocytes % (auto) 0.4 %; Lymphocytes # (auto) 1.23 K/uL (1.2-3.4); Lymphocytes % (auto) 10.4 %; Mean Corpuscular Hemoglobin 31.6 pg (25.0-34.0); Mean Corpuscular Hgb Conc 35.2 g/dL (32.0-36.0); Mean Corpuscular Volume 89.8 fL (80.0-100.0); Monocytes # (auto) 0.87 K/uL (0.24-0.82); Monocytes % (auto) 7.3 %; Neutrophils % (auto) 79.5 %; Platelet Count 215 K/uL (130-400); RDW Standard Deviation 39.3 fL (36.4-46.3); Red Blood Count 5.41 M/uL (4.63-6.08); White Blood Count 11.84 K/ul (4.8-10.8)
[2022-05-08 02:46] LABS: Adenovirus PCR Not Detected (NotDetected); Bordetella parapertussis PCR Not Detected (NotDetected); Bordetella pertussis PCR Not Detected (NotDetected); Chlamydia pneumoniae PCR Not Detected (NotDetected); Coronavirus 229E PCR Not Detected (NotDetected); Coronavirus CoV-2 (COVID19)PCR Not Detected (NotDetected); Coronavirus HKU1 PCR Not Detected (NotDetected); Coronavirus NL63 PCR Not Detected (NotDetected); Coronavirus OC43PCR Not Detected (NotDetected); Human Metapneumovirus PCR Not Detected (NotDetected); Influenza A PCR Not Detected (NotDetected); Influenza B PCR Not Detected (NotDetected); Mycoplasma pneumoniae PCR Not Detected (NotDetected); Parainfluenza Virus 1 PCR Not Detected (NotDetected); Parainfluenza Virus 2 PCR Not Detected (NotDetected); Parainfluenza Virus 3 PCR Not Detected (NotDetected); Parainfluenza Virus 4 PCR Not Detected (NotDetected); Respiratory Syncytial VirusPCR Not Detected (NotDetected)
[2022-05-08 02:57] LABS: Rhinovirus/Enterovirus PCR DETECTED (NotDetected)
[2022-05-08 03:01] LABS: Albumin Globulin Ratio 1.5 (0.9-2); Albumin Level 4.8 gm/dl (3.4-5.0); BUN Creatinine Ratio 15.8 (10-20); Bilirubin,Total 0.8 mg/dl (0.2-1.0); Calcium 9.9 mg/dl (8.5-10.1); Creatinine Clr Calc Pharmacy 135.3 ml/min; Est GFR (Non-African American) 101.9 ml/min; Globulin 3.3 gm/dl (2.5-4.0); Potassium 4.4 mmol/L (3.5-5.1); Total Protein 8.1 gm/dl (6.0-8.3); Troponin I High Sensitivity 49.4 pg/ml (0-20)
--- NOTE | 2022-05-08 03:56 | History & Physical Report ---
Date of Service May 08, 2022 Assessment & Plan (1) HOCM (hypertrophic obstructive cardiomyopathy): Plan: Dallin Cheng is a 36-year-old male with biventricular ICD in place due to HOCM, LBBB, CHF, PAF who presented due to flulike symptoms for past few days. He had fever and subsequent diaphoresis that felt similar to symptomatology during his aortic dissection in 2014. Viral URI Few days of cough, congestion With reported temperatures up to 104 at home temp normal in ED Entero/rhino positive on bio fire Stable vital signs with no hypoxia Continue with supportive care Tylenol as needed for fever/pain Gentle IV hydration x1 bag monitor closely due to decreased EF of 46% on cardiac MRI in June 2021 Biventricular ICD Due to HOCM, LBBB, CHF, PAF, follows with [facility] cardiology Placed on 04/30/2022, with atrial pacing lead dislodgment and repositioning later that same day EKG today showing atrial sensed ventricular paced rhythm machine readings suspected unspecified pacemaker failure Troponin initially elevated to 49 repeat 2 hours later down trended to 46 Patient had no chest pain or cardiac symptoms, troponin elevation likely representing demand ischemia Will consult [facility] cardiology for further evaluation regarding concern for pacemaker failure as above Keep patient n.p.o. for now in case of possible procedure CHF/PAF Holding home oral meds atorvastatin, enalapril, hydralazine, metoprolol, Xarelto As above gentle IV hydration in the setting of decreased EF, monitor fluid status closely DVT prophylaxis: SCDs, hold Xarelto in case of possible procedure FEN: NSS at 80 cc/h x 1 bag, n.p.o. Dispo: Telemetry for cardiac monitoring CODE STATUS: Full (2) Chronic heart failure: (3) Rhinovirus: (4) Elevated troponin: (5) Atrial fibrillation with rapid ventricular response: (6) LBBB (left bundle branch block): (7) PAF (paroxysmal atrial fibrillation): (8) Biventricular cardiac pacemaker in situ: (9) Viral illness: History of Present Illness Primary Care Provider: NO PCP Dallin Cheng is a 36-year-old male with biventricular ICD in place due to HOCM, LBBB, CHF, PAF who presented due to flulike symptoms for past few days. States over the last 2 or 3 days he has had some upper respiratory symptoms including mild cough, nasal congestion. He reports earlier tonight around 11 PM he developed a fever up to 104 F. Sometime after he developed significant diaphoresis, which felt similar to when he had his aortic dissection. He also noticed heart rate elevated up to 100. Due to symptoms above, patient decided to come get evaluated in ED. He denies chest pain, shortness of breath above baseline, nausea, vomiting, abdominal pain, weakness, numbness, tingling, swelling, headache, dizziness. Patient's lab work showing mild leukocytosis of 11.48, normal electrolytes, elevated AST, ALT, alk phos. Had initial troponin up to 49.4, with repeat 2 hours later of 46.2. Bio fire positive for entero/rhinovirus. EKG showing atrial sensed ventricular paced rhythm with a rate of 86, machine read as suspect unspecified pacemaker failure. Chest x-ray showing AICD in place with no obvious lead displacement upon my review. Cardiomegaly without pulmonary vascular congestion. Allergies Allergy/AdvReac Type Severity Reaction Status Date / Time mold Allergy Intermediate CONGESTION Verified 05/08/22 00:42 Dust Allergy Intermediate CONGESTION Uncoded 05/08/22 00:42 Home Medications Medication Instructions Recorded Confirmed Type atorvastatin 40 mg tablet 40 mg PO QAM 10/31/19 05/08/22 History enalapril maleate 10 mg tablet 10 mg PO BID 10/31/19 05/08/22 History hydralazine 25 mg tablet 12.5 mg PO BID 10/31/19 05/08/22 History metoprolol tartrate 100 mg tablet 100 mg PO BID 10/31/19 05/08/22 History Medical Marijuana 1 dose inhalation UD PRN Anxiety 04/29/22 05/08/22 History rivaroxaban 20 mg tablet (Xarelto) 20 mg PO PM 04/29/22 05/08/22 History oxycodone-acetaminophen 5 mg-325 1 tab PO Q4 PRN Moderate Pain 05/08/22 05/08/22 History mg tablet (Scale Score 5-6) Past Med/Surg History Medical History Anxiety Aortic dissection AT AGE 28 Asthma Environmental allergies History of COVID-19 11/2021>RESOLVED History of prediabetes HOCM (hypertrophic obstructive cardiomyopathy) s/p myomectomy HTN (hypertension) Hyperlipidemia LBBB (left bundle branch block) Marijuana use Morbid obesity PAF (paroxysmal atrial fibrillation) post-op from aortic dissection repair Vapes nicotine containing substance Surgical History H/O inguinal hernia repair as child "DOUBLE" History of anesthesia reaction "TAKES MORE MEDICATIONS FOR EFFECTIVENESS" S/P aortic dissection repair AT AGE 28 *GENO BRANDT S/P tonsillectomy [place] teeth removed Family History Mother Hypothyroidism Father Unknown family medical history Social History Smoking Status: Former smoker Tobacco Type: E-cigarettes / Vaping Second Hand Exposure: No; Hx Alcohol Use: Yes Alcohol type: beer and wine Hx Substance Use: Yes Preferred Language: Bermudian Communication Ability: Effective Sound Truck Operator Required: No Beliefs That Will Affect Care: None marital status: Single Current Living Situation: Alone Current Living Situation Comment: 1 ROOMATE current occupational status: employed 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 NAD. Diaphoretic. HEENT: PERRL, EOMI. Moist mucous membranes. NECK: No JVD. No lymphadenopathy. CHEST/LUNGS: CTAB A/P. No crackles, wheezes, rales, rhonchi. HEART: RRR. No m/g/r. No carotid bruits. ABDOMEN: NT/ND, soft. BS+ x4 EXTREMITIES: No cyanosis, no clubbing, no edema SKIN: Warm and dry. No rashes or lesions. PSYCHIATRIC: Euthymic affect, no SI, no pressured speech, no hallucinations NEUROLOGIC: No FND. Results & Data Results & Data ([facility]) Vital Signs (Past 12 Hours) Vital Signs Temp Pulse Resp BP Pulse Ox O2 Del Method 05/08/22 03:35 76 18 95 Room Air 05/08/22 03:00 75 14 96 05/08/22 02:30 82 18 94 05/08/22 02:13 83 21 135/87 Room Air 05/08/22 00:20 36.8 C 98 H 16 168/105 H 95 Room Air Supervising Physician Co-Signing Physician Notes Attending addendum: I have supervised the medical residents activities, and agree with the H&P unless as otherwise noted. Assessment and Plan: Elevated troponin/hypertrophic obstructive cardiomyopathy/biventricular ICD/CHF/PAF- The patient will be admitted to telemetry for serial cardiac enzymes, serial EKG's, cardiac rhythm monitoring and a 2-D echocardiogram with Dopplers. Troponin 49.4 on admission, with follow-up 46 2 hours later Likely aggravated by viral URI Positive for enterovirus/rhinovirus on viral panel Echo to assess for possible myocarditis Concern regarding possible ICD failure Gentle IV fluids as noted Temporarily holding medications as noted until assessed by cardiology in a.m. Consult cardiology Remaining orders and notations as noted Resident Activity Tracking Resident Involvement: Resident Care Provided Care Provided: Adult [facility] Medicine
[2022-05-08] MEDS ORDERED: SODIUM CHLORIDE 0.9% 1000ML 1,000 ML IV SCH (05:58)
[2022-05-08] MEDS ORDERED: ACETAMINOPHEN 1,000 MG/100 ML VIAL IV PRN (05:58)
[2022-05-08] MEDS ORDERED: ONDANSETRON INJ 2 MG/ML 2 ML VIAL IV PRN (05:58)
--- NOTE | 2022-05-08 06:51 | XRay Report ---
XR chest 1V portable HISTORY: 36 years-old Male cough, recent AICD implant, fever acute cough with fever COMPARISON: Chest radiograph 05/01/2022 TECHNIQUE: AP view of the chest FINDINGS: Cardiac silhouette is enlarged. Prior median sternotomy. Left subclavian pacer/AICD. There is no pneu mothorax, pleural effusion, airspace consolidation or overt pulmonary edema. The bones of the chest a ppear grossly intact. IMPRESSION: No acute process. ACT 112: Negative or not required by law. The above report was generated using voice recognition software. It may contain grammatical, syntax o r spelling errors. Electronically signed by: Dallin Watters M.D. 05/08/2022 6:50 AM
[2022-05-08] MEDS ORDERED: Nursing to Pharmacy Communication SCH (08:15)
[2022-05-08] MEDS ORDERED: ATORVASTATIN 40 MG TAB PO SCH (09:00)
[2022-05-08] MEDS ORDERED: hydrALAZINE HCL 25 MG TAB PO SCH (09:00)
[2022-05-08] MEDS ORDERED: ENALAPRIL MALEATE 10 MG TAB PO SCH (09:00)
[2022-05-08] MEDS ORDERED: METOPROLOL TARTRATE 100 MG TAB PO SCH (09:00)
--- NOTE | 2022-05-08 09:38 | Cardiology Consultation ---
Date of Consultation May 08, 2022 Assessment & Plan (1) Viral illness: (2) HOCM (hypertrophic obstructive cardiomyopathy): (3) HFrEF (heart failure with reduced ejection fraction): (4) Biventricular cardiac pacemaker in situ: (5) PAF (paroxysmal atrial fibrillation): (6) S/P aortic dissection repair: (7) HTN, goal below 130/80: Plan Medically complex 36 year old male presented to ED due to fever and tachycardia. S/p BIVICD 04/30/2022- EKG showing possible "pacemaker failure". Device interrogated- spoke with [employer], no concerning changes seen on report. No PAF. EKG read due to misread by the EKG computer due to the double spikes by the biv ppm. Minimally elevated trop- likely secondary to acute febrile viral illness- not employment program representative of ACS. Continue all medications as ordered. Okay to eat from a cardiology standpoint. No further cardiac intervention necessary at this time. Okay for discharge from a cardiology standpoint. Follow up with device clinic tomorrow as scheduled. Case discussed with Dr. Petty. Supervising Physician Co-Signing Physician Notes I have seen and examined the patient. I have reviewed the medical record and discussed the case with and Michael. I agree with the plan as outlined above. The patient has an appointment with the device clinic tomorrow which he will keep after discharge. History of Present Illness Reason for Consultation: ? Questionable ICD failure per EKG reading [facility] Attending Physician: Reinaldo Beverly MD History of Present Illness Medically complex 36-year-old male with history of thoracic dissection in 2014 with septal myomectomy for HOCM and aortic root reconstruction with reimplantation of the coronary arteries. Cardiac MRI completed last June showed severe asymmetrical left ventricular hypertrophy with a decline in LVEF of 46%. Patient has a known left bundle branch block and sinus bradycardia and ultimately underwent BiV ICD implantation by Dr. Torres on 04/30. Patient initially presented to the emergency department early this morning due to cough, congestion, and fever. Entero/rhinovirus positive on bio fire. An EKG was obtained reading atrial sensed/ventricular paced rhythm with unspecified pacemaker failure- patient without symptoms of chest pain, shortness of breath, or dizziness/syncope. Pacemaker device interrogation without acute concern. Upon entrance into the room patient resting in bed without acute concern. No chest pain, sob, palpitations, dizziness or syncope. No further fevers. Eager for discharge. Cardiac Problems pAF diagnosed 10/2019 (of note he had episode after emergent Type 1 aortic dissection in 05/2014); 10/2019 hospitalized in [facility] converted on his own was xarelto and already on high dose metoprolol; [id number] 1 (HTN) Acute Type 1 thoracic aortic dissection 05/26/2014 Septal myectomy for HCOM and aortic root reconstruction with reimplantation fo the coronaries 05/2014 HFrEF, LVEF 46% per CMRI 06/2021 LBBB Sinus Bradycardia S/p BiV ICD 04/30/2022 HTN Chronic tobacco use Obesity Morbidity SHARI-untreated Allergies Allergy/AdvReac Type Severity Reaction Status Date / Time mold Allergy Intermediate CONGESTION Verified 05/08/22 00:42 Dust Allergy Intermediate CONGESTION Uncoded 05/08/22 00:42 Home Medications Medication Instructions Recorded Confirmed Type atorvastatin 40 mg tablet 40 mg PO QAM 10/31/19 05/08/22 History enalapril maleate 10 mg tablet 10 mg PO BID 10/31/19 05/08/22 History hydralazine 25 mg tablet 12.5 mg PO BID 10/31/19 05/08/22 History metoprolol tartrate 100 mg tablet 100 mg PO BID 10/31/19 05/08/22 History Medical Marijuana 1 dose inhalation UD PRN Anxiety 04/29/22 05/08/22 History rivaroxaban 20 mg tablet (Xarelto) 20 mg PO PM 04/29/22 05/08/22 History oxycodone-acetaminophen 5 mg-325 1 tab PO Q4 PRN Moderate Pain 05/08/22 05/08/22 History mg tablet (Scale Score 5-6) Patient History Medical History Anxiety Aortic dissection AT AGE 28 Asthma Environmental allergies History of COVID-19 11/2021>RESOLVED History of prediabetes HOCM (hypertrophic obstructive cardiomyopathy) s/p myomectomy HTN (hypertension) Hyperlipidemia LBBB (left bundle branch block) Marijuana use Morbid obesity PAF (paroxysmal atrial fibrillation) post-op from aortic dissection repair Vapes nicotine containing substance Surgical History H/O inguinal hernia repair as child "DOUBLE" History of anesthesia reaction "TAKES MORE MEDICATIONS FOR EFFECTIVENESS" S/P aortic dissection repair AT AGE 28 *GENO BRANDT S/P tonsillectomy [place] teeth removed Family History Mother Hypothyroidism Father Unknown family medical history Social History Smoking Status: Former smoker Tobacco Type: E-cigarettes / Vaping Second Hand Exposure: No; Hx Alcohol Use: Yes Alcohol type: beer and wine Hx Substance Use: Yes Preferred Language: Bahraini Communication Ability: Effective 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 Required: No Beliefs That Will Affect Care: None marital status: Single Current Living Situation: Alone Current Living Situation Comment: 1 ROOMATE current occupational status: employed 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 steri strips in place. Chest (Breasts): Chest: + pacemaker Skin: no rashes, warm and dry Psychiatric: A+Ox3, euthymic affect Results & Data ([facility]) Vital Signs (Past 12 Hours) Vital Signs Temp Pulse Pulse Resp BP BP Pulse Ox 05/08/22 09:00 73 15 138/94 95 05/08/22 08:30 73 15 127/89 94 05/08/22 09:04 05/08/22 06:40 70 15 138/89 96 05/08/22 06:40 74 17 138/89 95 05/08/22 06:32 05/08/22 04:40 75 16 141/93 H 95 05/08/22 03:35 76 18 95 05/08/22 03:00 75 14 96 05/08/22 02:30 82 18 94 05/08/22 02:13 83 21 135/87 05/08/22 00:20 36.8 C 98 H 16 168/105 H 95 Pulse Ox O2 Del Method O2 Del Method 05/08/22 09:00 Room Air 05/08/22 08:30 Room Air 05/08/22 09:04 98 Room Air 05/08/22 06:40 Room Air 05/08/22 06:40 Room Air 05/08/22 06:32 95 Room Air 05/08/22 04:40 05/08/22 03:35 Room Air 05/08/22 03:00 05/08/22 02:30 05/08/22 02:13 Room Air 05/08/22 00:20 Room Air Laboratory Results Cardiac Enzymes 05/08/22 05/08/22 05/08/22 Range/Units 01:30 03:32 03:32 AST 46 H (13-39) U/L Troponin I High Sens 49.4 H 46.2 H (0-20) pg/ml B-Natriuretic Peptide 58 (0-100) pg/ml Coagulation 05/08/22 Range/Units 03:32 B-Natriuretic Peptide 58 (0-100) pg/ml CBC 05/08/22 Range/Units 01:30 WBC 11.84 H (4.8-10.8) K/ul RBC 5.41 (4.63-6.08) M/uL Hgb 17.1 (14.0-18.0) g/dl Hct 48.6 (40.1-51.0) % Plt Count 215 (130-400) K/uL Neut # (Auto) 9.40 H (1.4-6.5) K/uL Lymph # (Auto) 1.23 (1.2-3.4) K/uL [place] # (Auto) 0.87 H (0.24-0.82) K/uL Eos # (Auto) 0.24 (0-0.50) K/uL Baso # (Auto) 0.05 (0-0.2) K/uL Comprehensive Metabolic Panel 05/08/22 Range/Units 01:30 Sodium 137 (136-145) mmol/L Potassium 4.4 (3.5-5.1) mmol/L Chloride 103 (98-107) mmol/L Carbon Dioxide 27 (21-32) mmol/L BUN 15 (6-23) mg/dl Creatinine 0.95 (0.6-1.4) mg/dl Glucose 146 H (70-99(Fasting)) mg/dl Calcium 9.9 (8.5-10.1) mg/dl AST 46 H (13-39) U/L ALT 96 H (7-52) U/L Alkaline Phosphatase 119 H (34-104) U/L Total Protein 8.1 (6.0-8.3) gm/dl Albumin 4.8 (3.4-5.0) gm/dl Intake and Output 05/07/22 05/08/22 05/08/22 22:59 06:59 14:59 Intake Total 500 / 500 Balance 500 / 500 Intake: IV 500 / 500 Sodium Chloride 0.9% 500 ml @ 500 / 500 999 mls/hr IV .Q31M ONE Rx#: [id number] Other: Weight 128.9 kg Weight Measurement Method Chair Scale
--- NOTE | 2022-05-08 14:01 | Discharge Summary ---
Date of Service May 08, 2022 Admission HPI Per Admitting Provider Dallin Cheng is a 36-year-old male with biventricular ICD in place due to HOCM, LBBB, CHF, PAF who presented due to flulike symptoms for past few days. States over the last 2 or 3 days he has had some upper respiratory symptoms including mild cough, nasal congestion. He reports earlier tonight around 11 PM he developed a fever up to 104 F. Sometime after he developed significant diaphoresis, which felt similar to when he had his aortic dissection. He also noticed heart rate elevated up to 100. Due to symptoms above, patient decided to come get evaluated in ED. He denies chest pain, shortness of breath above baseline, nausea, vomiting, abdominal pain, weakness, numbness, tingling, swelling, headache, dizziness. Patient's lab work showing mild leukocytosis of 11.48, normal electrolytes, elevated AST, ALT, alk phos. Had initial troponin up to 49.4, with repeat 2 hours later of 46.2. Bio fire positive for entero/rhinovirus. EKG showing atrial sensed ventricular paced rhythm with a rate of 86, machine read as suspect unspecified pacemaker failure. Chest x-ray showing AICD in place with no obvious lead displacement upon my review. Cardiomegaly without pulmonary vascular congestion. Discharge Exam GENERAL: A&Ox3. NAD. Diaphoretic. HEENT: PERRL, EOMI. Moist mucous membranes. NECK: No JVD. No lymphadenopathy. CHEST/LUNGS: CTAB A/P. No crackles, wheezes, rales, rhonchi. HEART: RRR. No m/g/r. No carotid bruits. ABDOMEN: NT/ND, soft. BS+ x4 EXTREMITIES: No cyanosis, no clubbing, no edema SKIN: Warm and dry. No rashes or lesions. PSYCHIATRIC: Euthymic affect, no SI, no pressured speech, no hallucinations NEUROLOGIC: No FND. Constitutional WD/WN, vitals as above no acute distress Eyes PERRL, conjunctivae normal, anicteric sclerae Neck normal visual inspection Respiratory normal respiratory effort, lungs clear to auscultation Cardiovascular RRR, no murmur, no edema Heart Sounds: normal S1 and normal S2 Chest (Breasts) Chest: + pacemaker Skin no rashes, warm and dry Psychiatric A+Ox3, euthymic affect Discharge Data Allergies Allergy/AdvReac Type Severity Reaction Status Date / Time mold Allergy Intermediate CONGESTION Verified 05/08/22 00:42 Dust Allergy Intermediate CONGESTION Uncoded 05/08/22 00:42 Consultations 05/08/22 03:54 ED Decision to Admit Stat 05/08/22 05:58 Consult Cardiology Routine Discharge Plan Discharge Items Patient Disposition: Home - Self-Care Reason For Visit: VIRAL ILLNESS, ?ICD FAILURE Discharge Diagnosis: Rhinovirus infection, uncontrolled HTN , Sinus tachycardia Condition on Discharge: Good Activity: Resume your previous activity Bathing: No limitations Sexual Activity: When tolerated Driving/Machine Use: No limitations Weightbearing: Full weightbearing Non-emergency contact: Primary Care Provider and Bleach Range Operator Call non-emergency contact if: you have any medication questions Follow-up/Referrals: PCP,NO [Primary Care Provider] - Diet: Heart Healthy Addtl Attending Provider Instructions: Please check your blood pressure on a daily basis if the Top number is more than 180 or the bottom number is more than 105 consistency call your doctor . You have an appointment with your client services director tomorrow please let him now that your blood pressure is running high and ask about his advise, Pending Studies at Discharge: No Stand-Alone Forms: My [employer], Smoking Cessation Medications and DC Order Prescriptions: Continued atorvastatin 40 mg tablet 40 mg PO QAM enalapril maleate 10 mg tablet 10 mg PO BID metoprolol tartrate 100 mg tablet 100 mg PO BID hydralazine 25 mg tablet 12.5 mg PO BID Xarelto 20 mg Tablet 20 mg PO PM Rx Instructions: must administer with evening meal Medical Marijuana 1 dose inhalation UD PRN (Reason: Anxiety) Label Comments: INH AND ORAL USE oxycodone-acetaminophen 5-325 mg tablet 1 tab PO Q4 PRN (Reason: Moderate Pain (Scale Score 5-6)) Discharge Orders: Discharge Order (Routine); Ordered 05/08/22 Ordered By: Reinaldo Beverly Admission Data Admit Date/Time: 05/08/22 04:01 Attending Provider: Reinaldo Beverly Admit Provider: Avi Sharp Primary Care Provider: PCP,NO Other Providers: Rusty Carson ; Will Garcia ; Monico Kitchen ; Jerzy Brown ; Mahesh Walters ; Jayesh Petty ; Trey Huffman ; Keturah Coates ; Reema Torres ; Ludy Rodriguez ; Braydon Hubbard Other Interventions: Discharge Summary Assessment (RN) Last Done: 05/08/22 14:03 Coding
--- NOTE | 2022-05-08 14:11 | Discharge Summary ---
Date of Service May 08, 2022 Admission HPI Per Admitting Provider Dallin Cheng is a 36-year-old male with biventricular ICD in place due to HOCM, LBBB, CHF, PAF who presented due to flulike symptoms for past few days. States over the last 2 or 3 days he has had some upper respiratory symptoms including mild cough, nasal congestion. He reports earlier tonight around 11 PM he developed a fever up to 104 F. Sometime after he developed significant diaphoresis, which felt similar to when he had his aortic dissection. He also noticed heart rate elevated up to 100. Due to symptoms above, patient decided to come get evaluated in ED. He denies chest pain, shortness of breath above baseline, nausea, vomiting, abdominal pain, weakness, numbness, tingling, swelling, headache, dizziness. Patient's lab work showing mild leukocytosis of 11.48, normal electrolytes, elevated AST, ALT, alk phos. Had initial troponin up to 49.4, with repeat 2 hours later of 46.2. Bio fire positive for entero/rhinovirus. EKG showing atrial sensed ventricular paced rhythm with a rate of 86, machine read as suspect unspecified pacemaker failure. Chest x-ray showing AICD in place with no obvious lead displacement upon my review. Cardiomegaly without pulmonary vascular congestion. Principal Diagnosis Rhinovirus infection with tachycardia and hypertension Discharge Exam GENERAL: A&Ox3. NAD. Diaphoretic. HEENT: PERRL, EOMI. Moist mucous membranes. NECK: No JVD. No lymphadenopathy. CHEST/LUNGS: CTAB A/P. No crackles, wheezes, rales, rhonchi. HEART: RRR. No m/g/r. No carotid bruits. ABDOMEN: NT/ND, soft. BS+ x4 EXTREMITIES: No cyanosis, no clubbing, no edema SKIN: Warm and dry. No rashes or lesions. PSYCHIATRIC: Euthymic affect, no SI, no pressured speech, no hallucinations NEUROLOGIC: No FND. Constitutional WD/WN, vitals as above no acute distress Eyes PERRL, conjunctivae normal, anicteric sclerae Neck normal visual inspection Respiratory normal respiratory effort, lungs clear to auscultation Cardiovascular RRR, no murmur, no edema Heart Sounds: normal S1 and normal S2 Chest (Breasts) Chest: + pacemaker Skin no rashes, warm and dry Psychiatric A+Ox3, euthymic affect Discharge Data Allergies Allergy/AdvReac Type Severity Reaction Status Date / Time mold Allergy Intermediate CONGESTION Verified 05/08/22 00:42 Dust Allergy Intermediate CONGESTION Uncoded 05/08/22 00:42 Consultations 05/08/22 03:54 ED Decision to Admit Stat 05/08/22 05:58 Consult Cardiology Routine Hospital Course (1) Viral illness: Viral URI Few days of cough, congestion With reported temperatures up to 104 at home temp normal in ED Entero/rhino positive on Stable vital signs with no hypoxia Continue with supportive care Tylenol as needed for fever/pain Gentle IV hydration x1 bag -No meds upon discharge, patient is recommended to avoid any medication for cold that can increase his blood pressure including the [id number] medications. (2) HOCM (hypertrophic obstructive cardiomyopathy): Medically complex 36-year-old male with history of thoracic dissection in 2014 with septal myomectomy for HOCM and aortic root reconstruction with reimplantation of the coronary arteries. Cardiac MRI completed last June showed severe asymmetrical left ventricular hypertrophy with a decline in LVEF of 46%. Patient has a known left bundle branch block and sinus bradycardia and ultimately underwent BiV ICD implantation by Dr. Torres on 04/30. Patient initially presented to the emergency department early this morning due to cough, congestion, and fever. Entero/rhinovirus positive on . An EKG was obtained reading atrial sensed/ventricular paced rhythm with unspecified pacemaker failure- patient without symptoms of chest pain, shortness of breath, or dizziness/syncope. Pacemaker device interrogation without acute concern. Upon entrance into the room patient resting in bed without acute concern. No chest pain, sob, palpitations, dizziness or syncope. No further fevers. During the course of admission to [facility] EKG showed possible "pacemaker failure". Device interrogated-cardiology nurse practitioner spoke with [employer], no concerning changes seen on report. No PAF. According to cardiology nurse practitioner " EKG read due to misread by the EKG computer due to the double spikes by the biv ppm." Minimally elevated trop- likely secondary to acute febrile viral illness- not banking representative of ACS. Cardiology recommend to continue all medications as ordered and no further cardiac intervention necessary at this point and okay to discharge from station installer standpoint. He has an appointment with his station installer tomorrow, his blood pressure is on the high side especially diastolic pressure runs between 90s to 100, patient blood pressure was in acceptable range about1 weeks ago when his ICD was placed patient was advised to check his blood pressure on regular basis for the morning and afternoon collect information to log book and contact his primary care doctor or station installer if the systolic blood pressure more than 180 or diastolic blood pressure more than 105. Total Time Total Time Spent Total Time Spent (In Minutes): 45 Discharge Plan Discharge Items Patient Disposition: Home - Self-Care Reason For Visit: VIRAL ILLNESS, ?ICD FAILURE Discharge Diagnosis: Rhinovirus infection, uncontrolled HTN , Sinus tachycardia Condition on Discharge: Good Activity: Resume your previous activity Bathing: No limitations Sexual Activity: When tolerated Driving/Machine Use: No limitations Weightbearing: Full weightbearing Non-emergency contact: Primary Care Provider and Glass Furnace Operator Call non-emergency contact if: you have any medication questions Follow-up/Referrals: PCP,NO [Primary Care Provider] - Diet: Heart Healthy Addtl Attending Provider Instructions: Please check your blood pressure on a daily basis if the Top number is more than 180 or the bottom number is more than 105 consistency call your doctor . You have an appointment with your station installer tomorrow please let him now that your blood pressure is running high and ask about his advise, Pending Studies at Discharge: No Stand-Alone Forms: My [facility], Smoking Cessation Medications and DC Order Prescriptions: Continued atorvastatin 40 mg tablet 40 mg PO QAM enalapril maleate 10 mg tablet 10 mg PO BID metoprolol tartrate 100 mg tablet 100 mg PO BID hydralazine 25 mg tablet 12.5 mg PO BID Xarelto 20 mg Tablet 20 mg PO PM Rx Instructions: must administer with evening meal Medical Marijuana 1 dose inhalation UD PRN (Reason: Anxiety) Label Comments: INH AND ORAL USE oxycodone-acetaminophen 5-325 mg tablet 1 tab PO Q4 PRN (Reason: Moderate Pain (Scale Score 5-6)) Discharge Orders: Discharge Order (Routine); Ordered 05/08/22 Ordered By: Reinaldo Beverly Admission Data Admit Date/Time: 05/08/22 04:01 Attending Provider: Reinaldo Beverly Admit Provider: Avi Sharp Primary Care Provider: PCP,NO Other Providers: Rusty Carson ; Will Garcia ; Monico Kitchen ; Jerzy Brown ; Mahesh Walters ; Jayesh Petty. ; Trey Huffman ; Keturah Coates ; Reema Torres ; Ludy Rodriguez. ; Braydon Hubbard Other Interventions: Discharge Summary Assessment (RN) Last Done: 05/08/22 14:03 Coding Level of Care Code 21473 OBS Care - Discharge Diagnoses Viral illness B34.9 HOCM (hypertrophic obstructive cardiomyopathy) I42.1
--- NOTE | 2022-05-08 20:12 | Billing Data ---
Date of Service May 08, 2022 Coding Level of Care Code INT OBSERVATION CARE 70M LVL 3
[2022-05-08] MEDS ORDERED: RIVAROXABAN 20 MG TAB PO SCH (21:00)
--- NOTE | 2022-05-09 22:29 | Electrocardiogram Report ---
Test Reason : Blood Pressure : / mmHG Vent. Rate : 086 BPM Atrial Rate : 086 BPM P-R Int : 152 ms QRS Dur : 116 ms QT Int : 372 ms P-R-T Axes : 046 -60 077 degrees QTc Int : 445 ms Atrial-sensed ventricular-paced rhythm Abnormal ECG When compared with ECG of 01-MAY-2022 06:21, Vent. rate has increased BY 18 BPM Confirmed by Luc Koo ([id number]) on 05/09/2022 10:29:19 PM Referred By: REFERRED SELF Confirmed By:Luc Koo
== END 2022-05-08 08:09 | disposition home or self-care (01) | DRG 153 ==
LOC: ED 00:18 → SUATTDRO 04:01 → EDINP 04:01 → INTOOBSV 04:01 → EDINP 05:58